=== PATIENT | female | born 1995 | race Caucasian/White ===

== ENCOUNTER 2016-10-08 12:36 | Inpatient (IN) | payer OTHER ==
[~2016-10-08] VITALS: Ht 167.6 cm; Wt 85.1 kg
[2016-10-08 12:44] VITALS: Ht 167.6 cm; Wt 85.1 kg
[2016-10-08] MEDS ORDERED: TERBUTALINE 1 MG/ML INJ SC ONE (13:00)
[2016-10-08] MEDS ORDERED: LACTATED RINGER'S 1,000 ML IV ONE (13:00)
[2016-10-08 13:58] LABS: ADD UMIC YES; UR BILIRUBIN (Dip) NEGATIVE (NEGATIVE); UR BLOOD (Dip) 1+ (NEGATIVE); UR CLARITY CLEAR (CLEAR); UR COLOR LT. YELLOW (YELLOW); UR GLUCOSE (Dip) NEGATIVE (NEGATIVE); UR KETONES (Dip) 15 (NEGATIVE); UR LEUKOCYTE ESTERASE (Dip) NEGATIVE (NEGATIVE); UR NITRITE (Dip) NEGATIVE (NEGATIVE); UR TOTAL PROTEIN (Dip) NEGATIVE (NEGATIVE); UR UROBILINOGEN (Dip) 0.2 E.U./dL (0.1-1.0)
[2016-10-08 14:13] LABS: URINE RBCS 0-2 /HPF (0)
[2016-10-08 14:14] LABS: UR BACTERIA OCCASIONAL; UR SQUAMOUS EPITHELIAL CELL FEW
--- NOTE | 2016-10-08 14:24 | TRIAGE ---
OB Triage Datetime Report Generated by CPN: 10/08/2016 14:23 Datetime: 10/08/2016 14:16 Pain Assessment Pain Presence: None/Denies Datetime: 10/08/2016 13:30 Labor Evaluation Monitor Mode: External Resting Tone [place]: Relaxed Pain Assessment Pain Presence: None/Denies Datetime: 10/08/2016 12:50 Heart Rate FHR Baseline Rate: 145 Monitor Mode: Doppler Datetime: 10/08/2016 12:42 Time of Arrival: 10/08/2016 12:34 EGA: 22.2 Arrived By: Wheelchair Arrived From: Other Unit in Hospital Chief Complaint: Short cervix 8mm from Perinatology Contractions: Denies/Absent Rupture of Membranes: Denies Vaginal Bleeding: None Vaginal Discharge: Denies Recent Sexual Intercouse: Denies Abdominal Trauma: Not Applicable Patient Complaints: None Time Provider Notified: 10/08/2016 12:54 Provider Notified: Stanley Initial Plan: Doppler, IV start with IV hydration, Terbutaline 0.25mg subq x1 Datetime: 10/08/2016 12:40 Assessment Type: Triage Maternal Assessment Level of Consciousness: Fully Conscious DTR's/Clonus: DTRs 2+; No Clonus Headache: Denies Blurred Vision: No Respiratory Effort: Unlabored; Regular Rhythm; Equal Expansion Breath Sounds, Left: Clear and Equal Breath Sounds, Right: Clear and Equal Nausea/Vomiting: Denies RUQ Epigastric Pain: Denies Lower Extremities Edema: None Degree: None Upper Extremities Edema: None Degree: None Facial Edema: None Fall Risk Assessment History of Falling: (0) No Secondary Diagnosis: (0) No Ambulatory Aid: (0) Bedrest/Nurse Assist IV Therapy: (0) No Gait: (0) Normal/Bedrest/Immobile Mental Status: (0) Oriented to Own Ability Fall Score: 0 Fall Risk Score Definition: No Risk: No action required
[2016-10-08] MEDS ORDERED: INDOMETHACIN 50 MG PO SCH (14:30)
[2016-10-08] MEDS: INDOMETHACIN 50 MG PO SCH ×2 (14:37→19:34)
[2016-10-08] MEDS: LACTATED RINGER'S 1,000 ML IV SCH ×2 (19:35→22:13)
--- NOTE | 2016-10-08 21:17 | HP ---
Date/Time of Note Date/Time of Note DATE: 10/08/16 TIME: 21:12 OB - History Hx of Present Free Text/Dictation Sent in by perinatologist for observation at 21 weeks because of cervical length of 7mm Last Menstrual Period: Apr 13, 2016 Estimated Due Date: Feb 17, 2017 : 1 Para: 0 Care: Limited Care Ultrasounds: Abnormal US findings (short cervix ) Obstetrical Complications: Other (short cervix) Medical Complications: None Past Family/Social History * Past Medical, Surgical, Family and Obstetric Histories reviewed from chart. OB Admission Exam Physical Exam HEENT: WNL Heart: Rhythm Normal Lungs: Clear, Equal Abdomen: WNL Extremities: Normal Reflexes: Normal Cervical Dilatation: None Effacement: 75% Station: -3 Membranes: Intact Heart Rate: 140's Contractions on Admission: None OB Assessment/Plan Other Assessment: Short cervix at 21 weeks gestation Other plan: Per perinatology recommendation will keep patient in Trendelenburg position and start patient on Nifedipine and if needed terbutaline Reassess in 4 days for possible cervical cerclage TRACIE BISHOP MD October 08, 2016 21:17
[2016-10-09] MEDS: INDOMETHACIN 50 MG PO SCH ×4 (00:03→17:28)
[2016-10-09] MEDS: LACTATED RINGER'S 1,000 ML IV SCH ×3 (03:35→19:17)
[2016-10-09] MEDS: PRENATAL VITAMIN PO SCH (09:15)
[2016-10-09] MEDS: FERROUS SULFATE (EC) 325 MG TAB PO SCH (09:15)
[2016-10-09] MEDS: SENNA TAB PO SCH ×2 (09:16→21:18)
--- NOTE | 2016-10-09 18:18 | PN ---
Date/Time of Note Date/Time of Note DATE: 10/09/16 TIME: 18:17 OB Subjective Subjective Subjective NO C/O U/C OB Objective Objective Objective VSS P/E: :unchanged OB Assessment/Plan Other Assessment: short cervix IUP at 21 weeks Other plan: will continue Indocin x 3 more days and evaluate cervical length TRACIE BISHOP MD October 09, 2016 18:18
[2016-10-09] MEDS: PROGESTERONE 100 MG CAP VAG SCH (21:19)
[2016-10-10] MEDS: INDOMETHACIN 50 MG PO SCH ×5 (00:16→23:52)
[2016-10-10] MEDS: LACTATED RINGER'S 1,000 ML IV SCH ×3 (02:53→17:59)
[2016-10-10] MEDS: ACETAMINOPHEN 325 MG TAB PO PRN ×2 (07:05→12:42)
[2016-10-10] MEDS: FERROUS SULFATE (EC) 325 MG TAB PO SCH (09:11)
[2016-10-10] MEDS: PRENATAL VITAMIN PO SCH (09:11)
[2016-10-10] MEDS: SENNA TAB PO SCH ×2 (09:11→20:53)
[2016-10-10] MEDS ORDERED: ONDANSETRON 4 MG INJ IV STA (15:55)
[2016-10-10] MEDS ORDERED: ONDANSETRON 4 MG INJ ONE (16:02)
[2016-10-10] MEDS: MAGNESIUM HYDROXIDE 30ML CUP PO PRN (16:03)
--- NOTE | 2016-10-10 18:40 | PN ---
Date/Time of Note Date/Time of Note DATE: 10/10/16 TIME: 18:38 OB Subjective Subjective Subjective C/O N/V OB Objective Objective Objective VSS P/E unchanged HEENT: WNL Heart: Rhythm Normal Lungs: Clear, Equal Abdomen: WNL Extremities: Normal Reflexes: Normal OB Assessment/Plan Other Assessment: short cervix possible incompetent cervix Other plan: reevaluate cervical length next day TRACIE BISHOP MD October 10, 2016 18:40
[2016-10-10] MEDS: PROGESTERONE 100 MG CAP VAG SCH (20:58)
[2016-10-11] MEDS: LACTATED RINGER'S 1,000 ML IV SCH ×3 (02:19→17:42)
[2016-10-11] MEDS: INDOMETHACIN 50 MG PO SCH ×3 (06:03→17:42)
[2016-10-11] MEDS: SENNA TAB PO SCH ×2 (09:00→21:00)
[2016-10-11] MEDS: PRENATAL VITAMIN PO SCH (09:13)
[2016-10-11] MEDS: FERROUS SULFATE (EC) 325 MG TAB PO SCH (09:13)
[2016-10-11] MEDS: MAGNESIUM HYDROXIDE 30ML CUP PO PRN (12:50)
--- NOTE | 2016-10-11 16:37 | PN ---
Date/Time of Note Date/Time of Note DATE: 10/11/16 TIME: 16:34 OB Subjective Subjective Subjective NO C/O U/C OB Objective Objective Objective VSS P/E: NL on EFM no UC seen OB Assessment/Plan Other Assessment: short cervix Other plan: will repeat cervical length next day TRACIE BISHOP MD October 11, 2016 16:37
[2016-10-11] MEDS: PROGESTERONE 100 MG CAP VAG SCH (21:59)
[2016-10-12] MEDS: INDOMETHACIN 50 MG PO SCH ×4 (00:09→18:34)
[2016-10-12] MEDS: LACTATED RINGER'S 1,000 ML IV SCH (00:59)
[2016-10-12] MEDS: SENNA TAB PO SCH ×2 (09:00→21:00)
[2016-10-12] MEDS: PRENATAL VITAMIN PO SCH (09:17)
[2016-10-12] MEDS: FERROUS SULFATE (EC) 325 MG TAB PO SCH (09:17)
--- NOTE | 2016-10-12 10:00 | RADRPT ---
PROCEDURE: Obstetrical ultrasound CLINICAL INDICATION: Cervical shortening. TECHNIQUE: Puckett-scale sonographic images of the uterus and cervix. Transabdominal and transvaginal scanning was performed. COMPARISON: OB ultrasound 10/08/2016 FINDINGS: Funneling of the internal cervical os with cervical length of 1.0 cm is unchanged; as visualized tra nsvaginally. Placenta is posterior without evidence of previa. Breech presentation. IMPRESSION: Funneling of the internal cervical os with cervical length of 1.0 cm is unchanged. Breech presentation. RPTAT: AADD .Bradley Babb MD, MD Date Time Electronically viewed and signed by .Bradley Babb MD, on 10/12/2016 09:59 .B/
[2016-10-12] MEDS ORDERED: INDOMETHACIN 50 MG PO ONE (18:00)
--- NOTE | 2016-10-12 18:07 | PN ---
Date/Time of Note Date/Time of Note DATE: 10/12/16 TIME: 18:04 OB Subjective Subjective Subjective no major complaint OB Objective Objective Objective VSS P/E unchanged cervical length Unchanged with "funneling" OB Assessment/Plan Other Assessment: short cervix incompetent cervix Other plan: because of funneling patient needs to have hospitalization will discuss plan of care with perinatologist TRACIE BISHOP MD October 12, 2016 18:07
[2016-10-12] MEDS: PROGESTERONE 100 MG CAP VAG SCH (21:00)
[2016-10-13] MEDS: INDOMETHACIN 50 MG PO SCH ×2 (00:02→06:25)
[2016-10-13] MEDS: SENNA TAB PO SCH ×2 (09:00→21:32)
[2016-10-13] MEDS: PRENATAL VITAMIN PO SCH (09:05)
[2016-10-13] MEDS: FERROUS SULFATE (EC) 325 MG TAB PO SCH (09:05)
[2016-10-13] MEDS ORDERED: MAGNESIUM SULFATE 4 GM/100 ML 100 ML IV ONE (12:00)
[2016-10-13] MEDS: BETAMET NA PHOS/AC(6 MG/ML) 5ML INJ IM SCH (12:33)
[2016-10-13] MEDS: LACTATED RINGER'S 1,000 ML IV SCH (12:33)
[2016-10-13] MEDS: MAGNESIUM SULFATE 20 GM/500 ML 500 ML IV SCH ×2 (12:41→22:50)
--- NOTE | 2016-10-13 17:26 | PN ---
Date/Time of Note Date/Time of Note DATE: 10/13/16 TIME: 17:24 OB Subjective Subjective Subjective No major complaints OB Objective Objective Objective vss P/E : NL on EFM NO U/C seen per perinatologist patient was started on Magnesium Sulfate Indocin D/Iam sterois orderred per perinatologist OB Assessment/Plan Other Assessment: short cervix incompetent cervix Other plan: started patient on Magnesium sulfate per perinatologist TRACIE BISHOP MD October 13, 2016 17:26
[2016-10-13] MEDS: ACETAMINOPHEN 325 MG TAB PO PRN (19:44)
[2016-10-13] MEDS: PROGESTERONE 100 MG CAP VAG SCH (21:32)
[2016-10-14] MEDS: LACTATED RINGER'S 1,000 ML IV SCH ×2 (00:18→14:13)
[2016-10-14] MEDS: ONDANSETRON 4 MG INJ IV PRN ×2 (05:17→16:01)
[2016-10-14] MEDS: ACETAMINOPHEN 325 MG TAB PO PRN (07:27)
[2016-10-14] MEDS: MAGNESIUM HYDROXIDE 30ML CUP PO PRN (07:42)
[2016-10-14] MEDS: MAGNESIUM SULFATE 20 GM/500 ML 500 ML IV SCH ×2 (08:36→18:36)
[2016-10-14] MEDS: PRENATAL VITAMIN PO SCH (09:18)
[2016-10-14] MEDS: SENNA TAB PO SCH ×2 (09:18→21:00)
[2016-10-14] MEDS: FERROUS SULFATE (EC) 325 MG TAB PO SCH (09:18)
[2016-10-14] MEDS: BETAMET NA PHOS/AC(6 MG/ML) 5ML INJ IM SCH (12:00)
--- NOTE | 2016-10-14 18:14 | PN ---
Date/Time of Note Date/Time of Note DATE: 10/14/16 TIME: 18:13 OB Subjective Subjective Subjective No major complaint on magnesium sulfate OB Objective Objective Objective VSS general P/E is unchanged OB Assessment/Plan Other Assessment: shot cervix and incompetent cervix Other plan: start PO tocolytic next AM TRACIE BISHOP MD October 14, 2016 18:14
[2016-10-14] MEDS: PROGESTERONE 100 MG CAP VAG SCH (21:00)
[2016-10-15] MEDS: LACTATED RINGER'S 1,000 ML IV SCH ×2 (03:11→16:48)
[2016-10-15] MEDS: MAGNESIUM SULFATE 20 GM/500 ML 500 ML IV SCH ×2 (04:56→14:46)
[2016-10-15] MEDS: SENNA TAB PO SCH ×2 (09:00→21:56)
[2016-10-15] MEDS: FERROUS SULFATE (EC) 325 MG TAB PO SCH (09:00)
[2016-10-15] MEDS: PRENATAL VITAMIN PO SCH (09:00)
[2016-10-15] MEDS: NIFEdipine 10 MG CAP PO SCH (17:30)
--- NOTE | 2016-10-15 19:55 | PN ---
Date/Time of Note Date/Time of Note DATE: 10/15/16 TIME: 19:53 OB Subjective Subjective Subjective No major complaints No C/O UCs OB Objective Objective Objective vss P/E: NL and unchanges S/P 2 X steroid injection OB Assessment/Plan Other Assessment: short cervix ? labor Other plan: continue to observe on PO Nifedipine TRACIE BISHOP MD October 15, 2016 19:55
[2016-10-15] MEDS: PROGESTERONE 100 MG CAP VAG SCH (21:56)
[2016-10-16] MEDS: NIFEdipine 10 MG CAP PO SCH ×2 (00:06→05:52)
[2016-10-16] MEDS: LACTATED RINGER'S 1,000 ML IV SCH ×2 (05:51→19:31)
[2016-10-16] MEDS: PRENATAL VITAMIN PO SCH (09:37)
[2016-10-16] MEDS: FERROUS SULFATE (EC) 325 MG TAB PO SCH (09:37)
[2016-10-16] MEDS: SENNA TAB PO SCH ×2 (09:37→21:18)
[2016-10-16] MEDS ORDERED: MAGNESIUM SULFATE 4 GM/100 ML 100 ML IVPB ONE (12:00)
[2016-10-16] MEDS: INDOMETHACIN 25 MG PO SCH ×2 (12:12→18:03)
[2016-10-16] MEDS: MAGNESIUM SULFATE 20 GM/500 ML 500 ML IV SCH ×2 (12:25→22:08)
--- NOTE | 2016-10-16 15:09 | PN ---
Date/Time of Note Date/Time of Note DATE: 10/16/16 TIME: 15:07 OB Subjective Subjective Subjective C/P uterine tightening OB Objective Objective Objective on EFM frequr=ent uterine contractions seen patient was restarted on magnesium sulfate OB Assessment/Plan Reason for admission: labor Other Assessment: short cervix Other plan: continue with magnesium sulfate TRACIE BISHOP MD October 16, 2016 15:09
[2016-10-16] MEDS: PROGESTERONE 100 MG CAP VAG SCH (21:18)
[2016-10-17] MEDS: INDOMETHACIN 25 MG PO SCH ×5 (00:06→23:58)
[2016-10-17] MEDS: LACTATED RINGER'S 1,000 ML IV SCH ×2 (08:38→21:34)
[2016-10-17] MEDS: MAGNESIUM SULFATE 20 GM/500 ML 500 ML IV SCH ×2 (08:42→18:56)
[2016-10-17] MEDS: SENNA TAB PO SCH ×2 (09:35→21:18)
[2016-10-17] MEDS: FERROUS SULFATE (EC) 325 MG TAB PO SCH (09:36)
[2016-10-17] MEDS: PRENATAL VITAMIN PO SCH (09:36)
--- NOTE | 2016-10-17 17:14 | QN ---
Documentation Comment Progress note: 21 y.o. G1 with an IUP at 23w 4d with labor and a very short cervix. 10/08 EFW was 548 grams and the cervix was 0.8 cm with funneling. On 10/12 the cervix was 1 cm. She was given steroids 10/13 and 10/14. She is on progesterone suppositories.She had been on magnesium, then was on Indocin until 10/13. She was then changed to Procardia but she started angélica with that so last night the Magnesium was restarted as well as the Indocin? Pt feels well and is w /o bleeding or leaking. P: Continue magnesium for now. Will request another perinatology consult to develop a plan. BOBBI SUE MD October 17, 2016 17:14
[2016-10-17] MEDS: PROGESTERONE 100 MG CAP VAG SCH (21:18)
[2016-10-18] MEDS: MAGNESIUM SULFATE 20 GM/500 ML 500 ML IV SCH ×2 (04:40→14:28)
[2016-10-18] MEDS: INDOMETHACIN 25 MG PO SCH ×4 (06:04→23:58)
[2016-10-18] MEDS: PRENATAL VITAMIN PO SCH (09:53)
[2016-10-18] MEDS: FERROUS SULFATE (EC) 325 MG TAB PO SCH (09:53)
[2016-10-18] MEDS: SENNA TAB PO SCH ×2 (09:53→21:45)
[2016-10-18] MEDS: LACTATED RINGER'S 1,000 ML IV SCH (10:53)
[2016-10-18] MEDS: PROGESTERONE 100 MG CAP VAG SCH (21:45)
[2016-10-19] MEDS: MAGNESIUM SULFATE 20 GM/500 ML 500 ML IV SCH ×3 (00:01→20:30)
[2016-10-19] MEDS: LACTATED RINGER'S 1,000 ML IV SCH ×2 (00:02→13:36)
--- NOTE | 2016-10-19 00:17 | QN ---
Documentation Comment Progress note 21 y.o. G1 with an IUP at 23w 5 d on 10/18 with PTL and a short cervix of 1 cm. Pt had been on magnesium and Indocin and then went off and then was restarted on 10/16. Dr Rushing saw this pt today and formulated a plan. The plan is to continue the Indocin x 96 hours or 4 days which will be 10/20 at noon. The magnesium will be continued until then . If need be it will need to be d/shivani and then restarted after 6 hours. Pt is doing fine and is stable at this point in time. Her spirits are reasonably good. BOBBI SUE MD October 19, 2016 00:17
[2016-10-19] MEDS: INDOMETHACIN 25 MG PO SCH ×4 (05:52→23:54)
[2016-10-19] MEDS: SENNA TAB PO SCH ×2 (09:00→20:31)
[2016-10-19] MEDS: FERROUS SULFATE (EC) 325 MG TAB PO SCH (09:02)
[2016-10-19] MEDS: PRENATAL VITAMIN PO SCH (09:02)
--- NOTE | 2016-10-19 15:28 | QN ---
Documentation Comment pt doing well no complaints vss exam wnl fht POS a/p iup 23.6 short cervix stable continue current course SOLOMON BURCH MD October 19, 2016 15:28
[2016-10-19] MEDS: PROGESTERONE 100 MG CAP VAG SCH (20:31)
[2016-10-20] MEDS: LACTATED RINGER'S 1,000 ML IV SCH ×4 (03:18→23:15)
[2016-10-20] MEDS: MAGNESIUM SULFATE 20 GM/500 ML 500 ML IV SCH (06:26)
[2016-10-20] MEDS: INDOMETHACIN 25 MG PO SCH (06:28)
[2016-10-20] MEDS: FERROUS SULFATE (EC) 325 MG TAB PO SCH (09:06)
[2016-10-20] MEDS: PRENATAL VITAMIN PO SCH (09:06)
[2016-10-20] MEDS: SENNA TAB PO SCH ×2 (09:07→21:02)
--- NOTE | 2016-10-20 17:37 | PN ---
Date/Time of Note Date/Time of Note DATE: 10/20/16 TIME: 17:33 OB Subjective Subjective Subjective Patient is a 21-year-old 1 para 0 at 24 weeks of gestation with shortened cervix Status post magnesium sulfate Status post indomethacin Status post betamethasone for lung maturity 2 doses OB Objective Objective Objective Patient does not complain of any contractions, no leaking fluid, no vaginal bleeding, positive movement ROCEDURE: Obstetrical ultrasound CLINICAL INDICATION: Cervical shortening. TECHNIQUE: Puckett-scale sonographic images of the uterus and cervix. Transabdominal and transvaginal scanning was performed. COMPARISON: OB ultrasound 10/08/2016 FINDINGS: Funneling of the internal cervical os with cervical length of 1.0 cm is unchanged; as visualized transvaginally. Placenta is posterior without evidence of previa. Breech presentation. IMPRESSION: Funneling of the internal cervical os with cervical length of 1.0 cm is unchanged. Breech presentation. RPTAT: AADD .Bradley Babb MD, MD Date Time Electronically viewed and signed by .Bradley Babb MD, MD on 10/12/2016 09:59 .B/ CC: TRACIE BISHOP HEENT: WNL Heart: Rhythm Normal Lungs: Clear, Equal Abdomen: WNL Extremities: Normal Reflexes: Normal Heart Rate: 140's Accelerations: Accelerations Present Decelerations: No Decelerations Contractions on Admission: None OB Assessment/Plan Reason for admission: labor Other plan: Continue with expectant management Consider repeat ultrasound Perinatology to see the patient tomorrow TAVIA RIVAS MD October 20, 2016 17:37
[2016-10-20] MEDS: PROGESTERONE 100 MG CAP VAG SCH (21:02)
[2016-10-21] MEDS: LACTATED RINGER'S 1,000 ML IV SCH ×3 (08:20→22:39)
[2016-10-21] MEDS: FERROUS SULFATE (EC) 325 MG TAB PO SCH (09:50)
[2016-10-21] MEDS: PRENATAL VITAMIN PO SCH (09:50)
[2016-10-21] MEDS: SENNA TAB PO SCH ×2 (09:50→21:15)
--- NOTE | 2016-10-21 17:47 | QN ---
Documentation Comment Progress note: 21 y.o. with an IUP at 24w 1d with ah.o PTL and a very short cervix. S/p steroids and s/p Magnesium and Indocin x 2 rounds. Off all since yesterday and doing fine with no contractions or pain. Baby w/o evidence of distress when monitored. No VB or leaking. Pt on IVF's only. Pt had PT today. Pt in moderately good spirits. P: Continue care. May restart magnesium for a 4 day run whenever it is necessary. BOBBI SUE MD October 21, 2016 17:47
--- NOTE | 2016-10-21 18:28 | CONS ---
Date/Time of Note Date/Time of Note DATE: 10/21/16 TIME: 18:01 Consultation Date/Type/Reason Admit Date/Time October 21, 2016 OB triage consult Reason for Consultation This patient is a 21 years old 1 para 0 with estimated date of confinement February 09, 2017 which makes her 34 weeks and 1 day today . . She is admitted in the high-risk service of the hospital on October 08, 2016 She received both doses of betamethasone As well as a mag sulfate. Current Medications Medications (Trade) Dose Ordered Sig/Felipe Route PRN Reason Start Time Stop Time Status Last Admin Dose Admin Lactated Ringer's (Lr) 1,000 ml @ 1,000 mls/hr Q1H ONCE IV 10/08/16 13:00 10/08/16 13:59 DC 10/08/16 13:41 1,000 MLS/HR Terbutaline Sulfate 0.25 mg 0.25 mg ONCE ONCE SC 10/08/16 13:00 10/08/16 13:02 DC 10/08/16 13:40 0.25 MG Lactated Ringer's (Lr) 1,000 ml @ 125 mls/hr Q8H IV 10/08/16 14:13 10/12/16 11:44 DC 10/12/16 00:59 125 MLS/HR Indomethacin (Indocin) 50 mg Q6 ONCE PO 10/12/16 18:00 10/12/16 18:00 DC Prenat Multivit/ Mechanist/Iron/Folic Ac ( S) 1 tab DAILY PO 10/09/16 09:00 10/21/16 09:50 1 TAB Ferrous Sulfate (Ferrous Sulfate (Ec)) 325 mg DAILY PO 10/09/16 09:00 10/21/16 09:50 325 MG Acetaminophen (Tylenol Tab) 650 mg Q4H PRN PO PAIN AND OR ELEVATED TEMP 10/08/16 14:30 10/14/16 07:27 650 MG Indomethacin (Indocin) 50 mg QID PO 10/08/16 14:30 10/08/16 14:30 DC Indomethacin (Indocin) 50 mg Q6 PO 10/08/16 14:30 10/12/16 14:29 DC 10/12/16 11:49 50 MG Magnesium Hydroxide (Milk Of Mag) 30 ml BID PRN PO CONSTIPATION 10/08/16 21:30 10/14/16 07:42 30 ML Senna (Senokot) 2 tab BID PO 10/09/16 09:00 10/21/16 09:50 2 TAB Progesterone (Prometrium) 200 mg HS VAG 10/09/16 21:00 10/20/16 21:02 200 MG Ondansetron HCl (Zofran Inj) 4 mg ONCE STAT IV 10/10/16 15:55 10/10/16 16:01 DC 10/10/16 16:03 4 MG Ondansetron HCl (Zofran Inj) 4 mg STK-MED ONCE .ROUTE 10/10/16 16:02 10/10/16 16:03 DC Indomethacin 50 mg 50 mg Q6 PO 10/12/16 18:30 10/13/16 11:57 DC 10/13/16 06:25 50 MG Lactated Ringer's 1,000 ml @ 75 mls/hr [id number] IV 10/13/16 12:00 10/20/16 23:31 DC 10/20/16 23:14 75 MLS/HR Magnesium Sulfate 100 ml @ 200 mls/hr ONCE ONCE IV 10/13/16 12:00 10/13/16 12:29 DC 10/13/16 12:40 200 MLS/HR Magnesium Sulfate (Magnesium Sulfate 20 Gm/500 ml) 500 ml @ 50 mls/hr Q10H IV 10/13/16 12:00 10/14/16 16:23 DC 10/14/16 08:36 50 MLS/HR Betamethasone Acet/Betameth SodPhos (Celestone Soluspan) 12 mg Q24H IM 10/13/16 12:00 10/14/16 12:01 DC 10/14/16 12:00 12 MG Ondansetron HCl 4 mg 4 mg Q6H PRN IV NAUSEA AND/OR VOMITING 10/13/16 13:00 10/14/16 16:01 4 MG Magnesium Sulfate (Magnesium Sulfate 20 Gm/500 ml) 500 ml @ 50 mls/hr Q10H IV 10/14/16 16:22 10/15/16 15:59 DC 10/15/16 14:46 50 MLS/HR Nifedipine 20 mg 20 mg Q6 PO 10/15/16 18:00 10/16/16 12:20 DC 10/16/16 05:52 20 MG Magnesium Sulfate 100 ml @ 200 mls/hr ONCE ONCE IVPB 10/16/16 12:00 10/16/16 12:29 DC 10/16/16 11:56 200 MLS/HR Magnesium Sulfate (Magnesium Sulfate 20 Gm/500 ml) 500 ml @ 50 mls/hr Q10H IV 10/16/16 12:00 10/20/16 16:56 DC 10/20/16 06:26 50 MLS/HR Indomethacin 25 mg 25 mg Q6 PO 10/16/16 12:00 10/20/16 16:56 DC 10/20/16 06:28 25 MG Lactated Ringer's (Lr) 1,000 ml @ 125 mls/hr Q8H IV 10/20/16 23:10 10/21/16 14:52 125 MLS/HR Reason for Consultation This patient is a 21 years old 1 para 0 with estimated date of confinement of February 09, 2017 which makes her 34 weeks and 1 day today . . She is admitted in the high-risk service of the hospital since October 08, 2016 She received both doses of betamethasone As well as a max sulfate Currently she is a stable heart tone is normal good variability no deceleration Abdomen is soft no palpable contractions no vaginal bleeding Constitutional: No chills, No diaphoresis, No disoriented, No febrile, No improved, No no complaints, No other, No poor po, No requiring IVF, No requiring O2 Eyes: No discharge, No no complaints, No other, No pain, No redness, No visual change ENT: No bleeding, No congestion, No discharge, No dysphagia, No no complaints, No other, No pain, No sore throat Respiratory: No cough, No no complaints, No other, No pain, No pleuritic pain, No shortness of breath, No sputum, No wheezing Cardiovascular: No chest pain, No edema, No lightheadedness, No no complaints, No orthopenea, No other, No palpitations, No paroxysmal nocturnal dyspnea Gastrointestinal: other (Abdomen is soft fundus is soft no contraction at this time heart tone is normal), No blood, No constipation, No decreased appetite, No diarrhea, No flatus, No nausea, No no complaints, No pain, No passing stool, No vomiting Genitourinary: No bleeding, No discharge, No dysuria, No flank pain, No hematuria, No no complaints, No other Musculoskeletal: No back pain, No bone/joint pain, No neck pain, No no complaints, No other, No restricted range of motion, No swelling Skin: No bruising, No erythema, No laceration, No no complaints, No other, No pruritis, No rash, No skin lesions Neurologic: No confusion, No dizziness, No focal-weakness, No headache, No no complaints, No other, No seizure, No syncope Endocrine: No dry skin, No no complaints, No other, No polydypsia, No polyuria , No temp intolerance Additional Comments She will stay in high risk service of the hospital till about 35 or 36 weeks of gestation Social History Smoking Status: Never smoker Exam/Review of Systems Vital Signs Vitals Intake and Output 10/20/16 10/20/16 10/21/16 15:00 23:00 07:00 Intake Total 250 ml 250 ml 1000 ml Output Total 1250 ml 800 ml 550 ml Balance -1000 ml -550 ml 450 ml Medications Medications Current Medications Prenat Multivit/ Mechanist/Iron/Folic Ac ( S) 1 tab DAILY PO Last administered on 10/21/16 09:50; Admin Dose 1 TAB; Start 10/09/16 at 09:00 Ferrous Sulfate (Ferrous Sulfate (Ec)) 325 mg DAILY PO Last administered on 09:50; Admin Dose 325 MG; Start 10/09/16 at 09:00 Acetaminophen (Tylenol Tab) 650 mg Q4H PRN PO PAIN AND OR ELEVATED TEMP Last administered on 10/14/16 07:27; Admin Dose 650 MG; Start 10/08/16 at 14:30 Magnesium Hydroxide (Milk Of Mag) 30 ml BID PRN PO CONSTIPATION Last administered on 10/14/16 07:42; Admin Dose 30 ML; Start 10/08/16 at 21:30 Senna (Senokot) 2 tab BID PO Last administered on 10/21/16 09:50; Admin Dose 2 TAB; Start 10/09/16 at 09:00 Progesterone (Prometrium) 200 mg HS VAG Last administered on 10/20/16 21:02; Admin Dose 200 MG; Start 10/09/16 at 21:00 Ondansetron HCl 4 mg 4 mg Q6H PRN IV NAUSEA AND/OR VOMITING Last administered on 10/14/16 16:01; Admin Dose 4 MG; Start 10/13/16 at 13:00 Lactated Ringer's (Lr) 1,000 ml @ 125 mls/hr Q8H IV Last administered on 14:52; Admin Dose 125 MLS/HR; Start 10/20/16 at 23:10 ISAAC SCOTT MD October 21, 2016 18:11
[2016-10-21] MEDS: PROGESTERONE 100 MG CAP VAG SCH (21:15)
[2016-10-22] MEDS: LACTATED RINGER'S 1,000 ML IV SCH ×3 (06:09→23:00)
[2016-10-22] MEDS: PRENATAL VITAMIN PO SCH (10:18)
[2016-10-22] MEDS: SENNA TAB PO SCH ×2 (10:18→21:27)
[2016-10-22] MEDS: FERROUS SULFATE (EC) 325 MG TAB PO SCH (10:18)
--- NOTE | 2016-10-22 20:38 | PN ---
Date/Time of Note Date/Time of Note DATE: 10/22/16 TIME: 20:36 OB Subjective Subjective Subjective NO C/O U/C OB Objective Objective Objective VSS P/E: NL on EFM no UC seen OB Assessment/Plan Other Assessment: labor short cervix Other plan: continue to observe TRACIE BISHOP MD October 22, 2016 20:38
[2016-10-22] MEDS: PROGESTERONE 100 MG CAP VAG SCH (21:27)
[2016-10-23] MEDS: NIFEdipine 10 MG CAP PO SCH ×5 (00:11→23:51)
[2016-10-23] MEDS: LACTATED RINGER'S 1,000 ML IV SCH ×3 (06:40→22:33)
[2016-10-23] MEDS: SENNA TAB PO SCH ×2 (09:07→22:04)
[2016-10-23] MEDS: PRENATAL VITAMIN PO SCH (09:07)
[2016-10-23] MEDS: FERROUS SULFATE (EC) 325 MG TAB PO SCH (09:07)
--- NOTE | 2016-10-23 13:44 | PN ---
Date/Time of Note Date/Time of Note DATE: 10/23/16 TIME: 13:42 OB Subjective Subjective Subjective No C/O UCs OB Objective Objective Objective VSS P/E:NL on EFM no U/C seen OB Assessment/Plan Reason for admission: labor Other Assessment: short dervic Other plan: continue to observe TRACIE BISHOP MD Oct 23, 2016 13:44
[2016-10-23] MEDS: PROGESTERONE 100 MG CAP VAG SCH (22:04)
[2016-10-24] MEDS: LACTATED RINGER'S 1,000 ML IV SCH ×3 (05:44→22:23)
[2016-10-24] MEDS: NIFEdipine 10 MG CAP PO SCH ×3 (05:46→18:08)
[2016-10-24] MEDS: FERROUS SULFATE (EC) 325 MG TAB PO SCH (08:52)
[2016-10-24] MEDS: PRENATAL VITAMIN PO SCH (08:52)
[2016-10-24] MEDS: SENNA TAB PO SCH ×2 (08:53→21:21)
--- NOTE | 2016-10-24 15:15 | PN ---
Date/Time of Note Date/Time of Note DATE: 10/24/16 TIME: 15:14 OB Subjective Subjective Subjective No major complaints OB Objective Objective Objective vss P/E: NL on EFM no UC seen OB Assessment/Plan Reason for admission: labor Other Assessment: short cervix Other plan: continue to observe TRACIE BISHOP MD Oct 24, 2016 15:15
[2016-10-24] MEDS: PROGESTERONE 100 MG CAP VAG SCH (21:22)
[2016-10-25] MEDS: NIFEdipine 10 MG CAP PO SCH ×5 (00:25→23:50)
[2016-10-25] MEDS: LACTATED RINGER'S 1,000 ML IV SCH ×3 (06:05→21:42)
[2016-10-25] MEDS: FERROUS SULFATE (EC) 325 MG TAB PO SCH (09:16)
[2016-10-25] MEDS: SENNA TAB PO SCH ×2 (09:16→20:59)
[2016-10-25] MEDS: PRENATAL VITAMIN PO SCH (09:16)
--- NOTE | 2016-10-25 13:52 | PN ---
Date/Time of Note Date/Time of Note DATE: 10/25/16 TIME: 13:51 OB Subjective Subjective Subjective no C/O UCs OB Objective Objective Objective VSS general PE: unchanged o EFM no UCs seen OB Assessment/Plan Reason for admission: labor Other Assessment: short cervix Other plan: will continue on current course TRACIE BISHOP MD Oct 25, 2016 13:52
[2016-10-25] MEDS: PROGESTERONE 100 MG CAP VAG SCH (20:59)
[2016-10-26] MEDS: LACTATED RINGER'S 1,000 ML IV SCH (05:46)
[2016-10-26] MEDS: NIFEdipine 10 MG CAP PO SCH ×4 (05:49→23:58)
[2016-10-26] MEDS: PRENATAL VITAMIN PO SCH (09:07)
[2016-10-26] MEDS: SENNA TAB PO SCH ×2 (09:08→21:05)
[2016-10-26] MEDS: FERROUS SULFATE (EC) 325 MG TAB PO SCH (09:08)
--- NOTE | 2016-10-26 17:22 | PN ---
Date/Time of Note Date/Time of Note DATE: 10/26/16 TIME: 17:20 OB Subjective Subjective Subjective no C/O UCs OB Objective Objective Objective vss P/E: NL on EFM no UCs seen OB Assessment/Plan Reason for admission: labor Other Assessment: short cervix Other plan: continue to observe on bed + pelvic rest TRACIE BISHOP MD Oct 26, 2016 17:22
[2016-10-26] MEDS: PROGESTERONE 100 MG CAP VAG SCH (21:05)
[2016-10-27] MEDS: NIFEdipine 10 MG CAP PO SCH ×4 (06:12→23:56)
[2016-10-27] MEDS: FERROUS SULFATE (EC) 325 MG TAB PO SCH (09:12)
[2016-10-27] MEDS: PRENATAL VITAMIN PO SCH (09:12)
[2016-10-27] MEDS: SENNA TAB PO SCH ×2 (09:12→21:09)
--- NOTE | 2016-10-27 18:38 | PN ---
Date/Time of Note Date/Time of Note DATE: 10/27/16 TIME: 18:36 OB Subjective Subjective Subjective No major complaints No C/S UCs OB Objective Objective Objective vss P/E: unchanged on EFM no UC seen OB Assessment/Plan Other Assessment: labor and short cervix Other plan: per perinatologist will keep patient in house TRACIE BISHOP MD Oct 27, 2016 18:38
[2016-10-27] MEDS: PROGESTERONE 100 MG CAP VAG SCH (21:09)
[2016-10-28] MEDS: NIFEdipine 10 MG CAP PO SCH ×4 (05:53→23:59)
[2016-10-28] MEDS: PRENATAL VITAMIN PO SCH (09:31)
[2016-10-28] MEDS: SENNA TAB PO SCH ×2 (09:31→21:03)
[2016-10-28] MEDS: FERROUS SULFATE (EC) 325 MG TAB PO SCH (09:31)
--- NOTE | 2016-10-28 17:01 | PN ---
Date/Time of Note Date/Time of Note DATE: 10/28/16 TIME: 16:59 OB Subjective Subjective Subjective No C/O UC OB Objective Objective Objective VSS general P/E in unchanged OB Assessment/Plan Reason for admission: labor Other Assessment: short cervix Other plan: continue on current course TRACIE BISHOP MD Oct 28, 2016 17:01
[2016-10-28] MEDS: PROGESTERONE 100 MG CAP VAG SCH (21:03)
[2016-10-29] MEDS: NIFEdipine 10 MG CAP PO SCH ×3 (06:04→17:55)
[2016-10-29] MEDS: SENNA TAB PO SCH ×2 (09:34→21:05)
[2016-10-29] MEDS: FERROUS SULFATE (EC) 325 MG TAB PO SCH (09:34)
[2016-10-29] MEDS: PRENATAL VITAMIN PO SCH (09:34)
--- NOTE | 2016-10-29 20:21 | PN ---
Date/Time of Note Date/Time of Note DATE: 10/29/16 TIME: 20:18 OB Subjective Subjective Subjective no major complaint no C/O UC OB Objective Objective Objective VSS P/E: unchanged on EFM no UC seen OB Assessment/Plan Reason for admission: labor Other Assessment: short cervix Other plan: continue observe TRACIE BISHOP MD Oct 29, 2016 20:20
[2016-10-29] MEDS: PROGESTERONE 100 MG CAP VAG SCH (21:06)
[2016-10-30] MEDS: NIFEdipine 10 MG CAP PO SCH ×5 (00:08→23:55)
[2016-10-30] MEDS: FERROUS SULFATE (EC) 325 MG TAB PO SCH (08:54)
[2016-10-30] MEDS: SENNA TAB PO SCH ×2 (08:55→20:56)
[2016-10-30] MEDS: PRENATAL VITAMIN PO SCH (08:55)
--- NOTE | 2016-10-30 12:02 | PN ---
Date/Time of Note Date/Time of Note DATE: 10/30/16 TIME: 12:00 OB Subjective Subjective Subjective No C/O U/C OB Objective Objective Objective VSS P/E unchanged has no UCs on EFM OB Assessment/Plan Reason for admission: labor Other Assessment: short cervix Other plan: continue to observe TRACIE BISHOP MD Oct 30, 2016 12:02
[2016-10-30] MEDS: PROGESTERONE 100 MG CAP VAG SCH (20:56)
[2016-10-31] MEDS: NIFEdipine 10 MG CAP PO SCH ×4 (05:55→23:57)
[2016-10-31] MEDS: FERROUS SULFATE (EC) 325 MG TAB PO SCH (09:04)
[2016-10-31] MEDS: PRENATAL VITAMIN PO SCH (09:04)
[2016-10-31] MEDS: SENNA TAB PO SCH ×2 (09:04→21:17)
--- NOTE | 2016-10-31 13:33 | PN ---
Date/Time of Note Date/Time of Note DATE: 10/31/16 TIME: 13:27 OB Subjective Subjective Subjective no c/o cramping pain or pressure on lower abdomen having b.m daily no leaking OB Objective Objective Objective FHT 140 EFM no uc OB Assessment/Plan Other Assessment: IUP 25w4d short cervix 1cm stable beech presentation s/p x2 bmz s/p magnesium sulfate for 4days even indocin for 4days on progesterone 200mg supp hs and procardia [id number] Other plan: continue current care with bed rest ADRIANNA GROSSMAN MD Oct 31, 2016 13:33
[2016-10-31] MEDS: PROGESTERONE 100 MG CAP VAG SCH (21:17)
[2016-11-01] MEDS: NIFEdipine 10 MG CAP PO SCH ×3 (05:53→17:22)
[2016-11-01] MEDS: PRENATAL VITAMIN PO SCH (08:53)
[2016-11-01] MEDS: SENNA TAB PO SCH ×2 (08:53→21:02)
[2016-11-01] MEDS: FERROUS SULFATE (EC) 325 MG TAB PO SCH (08:53)
[2016-11-01] MEDS: PROGESTERONE 100 MG CAP VAG SCH (21:02)
--- NOTE | 2016-11-01 22:54 | PN ---
Date/Time of Note Date/Time of Note DATE: 11/01/16 TIME: 22:51 OB Subjective Subjective Subjective had bloating today but no pressure or uterine contractions OB Objective Objective Objective u.c 1/hr on efm OB Assessment/Plan Other Assessment: IUP 25w5d short cervix Other plan: continue with observation with current management ADRIANNA GROSSMAN MD Nov 01, 2016 22:54
[2016-11-02] MEDS: NIFEdipine 10 MG CAP PO SCH ×5 (00:05→23:48)
[2016-11-02] MEDS: PRENATAL VITAMIN PO SCH (08:36)
[2016-11-02] MEDS: SENNA TAB PO SCH ×2 (08:36→20:57)
[2016-11-02] MEDS: FERROUS SULFATE (EC) 325 MG TAB PO SCH (08:36)
--- NOTE | 2016-11-02 16:35 | PN ---
Date/Time of Note Date/Time of Note DATE: 11/02/16 TIME: 16:33 OB Subjective Subjective Subjective no co having b.m daily OB Objective Objective Objective EFM no significant uterine activities OB Assessment/Plan Other Assessment: IUP 25w6d short cervix stable Other plan: continue current management ADRIANNA GROSSMAN MD Nov 02, 2016 16:35
[2016-11-02] MEDS: PROGESTERONE 100 MG CAP VAG SCH (20:57)
[2016-11-03] MEDS: NIFEdipine 10 MG CAP PO SCH ×4 (05:47→23:51)
[2016-11-03] MEDS: PRENATAL VITAMIN PO SCH (08:37)
[2016-11-03] MEDS: SENNA TAB PO SCH ×2 (08:38→21:12)
[2016-11-03] MEDS: FERROUS SULFATE (EC) 325 MG TAB PO SCH (08:38)
--- NOTE | 2016-11-03 15:51 | PN ---
Date/Time of Note Date/Time of Note DATE: 11/03/16 TIME: 15:50 OB Subjective Subjective Subjective no C/O uterine contractions OB Objective Objective Objective vss P/E unchanged FHTs R OB Assessment/Plan Reason for admission: labor Other Assessment: short cervix Other plan: continue on present course TRACIE BISHOP MD Nov 03, 2016 15:51
[2016-11-03] MEDS: PROGESTERONE 100 MG CAP VAG SCH (21:12)
[2016-11-04] MEDS: NIFEdipine 10 MG CAP PO SCH ×4 (05:47→23:42)
[2016-11-04] MEDS: FERROUS SULFATE (EC) 325 MG TAB PO SCH (09:13)
[2016-11-04] MEDS: SENNA TAB PO SCH ×2 (09:13→21:07)
[2016-11-04] MEDS: PRENATAL VITAMIN PO SCH (09:13)
--- NOTE | 2016-11-04 18:19 | PN ---
Date/Time of Note Date/Time of Note DATE: 11/04/16 TIME: 18:10 OB Subjective Subjective Subjective No C/O UCs OB Objective Objective Objective On EFM NO U/C seen OB Assessment/Plan Reason for admission: labor Other Assessment: short cervix Other plan: continue on present course TRACIE BISHOP MD Nov 04, 2016 18:19
[2016-11-04] MEDS: PROGESTERONE 100 MG CAP VAG SCH (21:07)
[2016-11-05] MEDS: NIFEdipine 10 MG CAP PO SCH ×3 (05:49→18:25)
[2016-11-05] MEDS: FERROUS SULFATE (EC) 325 MG TAB PO SCH (09:19)
[2016-11-05] MEDS: SENNA TAB PO SCH ×2 (09:20→21:33)
[2016-11-05] MEDS: PRENATAL VITAMIN PO SCH (09:20)
--- NOTE | 2016-11-05 18:42 | PN ---
Date/Time of Note Date/Time of Note DATE: 11/05/16 TIME: 18:41 OB Subjective Subjective Subjective No major complaints OB Objective Objective Objective VSS P/E: unchanged on EFM no UC seen OB Assessment/Plan Reason for admission: labor Other Assessment: short cervix Other plan: perinatologist want to keep baby in house will follow TRACIE BISHOP MD Nov 05, 2016 18:42
[2016-11-05] MEDS: PROGESTERONE 100 MG CAP VAG SCH (21:33)
[2016-11-06] MEDS: NIFEdipine 10 MG CAP PO SCH ×4 (00:41→18:37)
[2016-11-06] MEDS: PRENATAL VITAMIN PO SCH (08:32)
[2016-11-06] MEDS: SENNA TAB PO SCH ×2 (08:32→21:18)
[2016-11-06] MEDS: FERROUS SULFATE (EC) 325 MG TAB PO SCH (08:32)
--- NOTE | 2016-11-06 18:58 | PN ---
Date/Time of Note Date/Time of Note DATE: 11/06/16 TIME: 18:56 OB Subjective Subjective Subjective No major complaints OB Objective Objective Objective VSS P/E: nl on EFM no UC seen OB Assessment/Plan Reason for admission: labor Other Assessment: short cervix Other plan: continue on present course TRACIE BISHOP MD Nov 06, 2016 18:58
[2016-11-06] MEDS: PROGESTERONE 100 MG CAP VAG SCH (21:17)
[2016-11-07] MEDS: NIFEdipine 10 MG CAP PO SCH ×4 (00:03→18:11)
[2016-11-07] MEDS: FERROUS SULFATE (EC) 325 MG TAB PO SCH (09:26)
[2016-11-07] MEDS: PRENATAL VITAMIN PO SCH (09:26)
[2016-11-07] MEDS: SENNA TAB PO SCH ×2 (09:27→21:14)
--- NOTE | 2016-11-07 14:00 | PN ---
Date/Time of Note Date/Time of Note DATE: 11/07/16 TIME: 13:58 OB Subjective Subjective Subjective no C/O UCs OB Objective Objective Objective VSS P/E: unchanged on EFM No UC seen OB Assessment/Plan Reason for admission: labor (resolved ) Other Assessment: very short cervix Other plan: continue to observe in house per perinatologist TRACIE BISHOP MD Nov 07, 2016 14:00
[2016-11-07] MEDS: PROGESTERONE 100 MG CAP VAG SCH (21:14)
[2016-11-08] MEDS: NIFEdipine 10 MG CAP PO SCH ×5 (00:03→23:57)
[2016-11-08] MEDS: PRENATAL VITAMIN PO SCH (09:55)
[2016-11-08] MEDS: SENNA TAB PO SCH ×2 (09:56→20:50)
[2016-11-08] MEDS: FERROUS SULFATE (EC) 325 MG TAB PO SCH (09:56)
--- NOTE | 2016-11-08 20:46 | PN ---
Date/Time of Note Date/Time of Note DATE: 11/08/16 TIME: 19:02 OB Subjective Subjective Subjective No major complaints no C/O UCs OB Objective Objective Objective VSS P/E: unchanged on EFM no UC seen OB Assessment/Plan Reason for admission: labor Other Assessment: short cervix Other plan: dontinue to observe TRACIE BISHOP MD Nov 08, 2016 19:03
[2016-11-08] MEDS: PROGESTERONE 100 MG CAP VAG SCH (20:50)
[2016-11-09] MEDS: NIFEdipine 10 MG CAP PO SCH ×3 (06:01→18:09)
[2016-11-09] MEDS: FERROUS SULFATE (EC) 325 MG TAB PO SCH (09:31)
[2016-11-09] MEDS: PRENATAL VITAMIN PO SCH (09:32)
[2016-11-09] MEDS: SENNA TAB PO SCH ×2 (09:32→21:09)
--- NOTE | 2016-11-09 18:49 | PN ---
Date/Time of Note Date/Time of Note DATE: 11/09/16 TIME: 18:47 OB Subjective Subjective Subjective No C/O UCs OB Objective Objective Objective VSS / general PO/E is unchanged on EFM no UC seen OB Assessment/Plan Reason for admission: labor Other Assessment: short cervix Other plan: follow perinatology recommendation and keep patient in house TRACIE BISHOP MD Nov 09, 2016 18:49
[2016-11-09] MEDS: PROGESTERONE 100 MG CAP VAG SCH (21:09)
[2016-11-10] MEDS: NIFEdipine 10 MG CAP PO SCH ×4 (00:18→17:50)
[2016-11-10] MEDS: PRENATAL VITAMIN PO SCH (08:52)
[2016-11-10] MEDS: FERROUS SULFATE (EC) 325 MG TAB PO SCH (08:52)
[2016-11-10] MEDS: SENNA TAB PO SCH ×2 (08:52→21:31)
--- NOTE | 2016-11-10 17:31 | PN ---
Date/Time of Note Date/Time of Note DATE: 11/10/16 TIME: 17:30 OB Subjective Subjective Subjective NO C/O UCs OB Objective Objective Objective VS P/E: normal FHTs + on EFM no UC seen OB Assessment/Plan Reason for admission: labor Other Assessment: short cervix will continue to observe TRACIE BISHOP MD Nov 10, 2016 17:31
[2016-11-10] MEDS: PROGESTERONE 100 MG CAP VAG SCH (21:31)
[2016-11-11] MEDS: NIFEdipine 10 MG CAP PO SCH ×4 (00:28→18:05)
[2016-11-11] MEDS: FERROUS SULFATE (EC) 325 MG TAB PO SCH (09:40)
[2016-11-11] MEDS: PRENATAL VITAMIN PO SCH (09:40)
[2016-11-11] MEDS: SENNA TAB PO SCH ×2 (09:40→21:27)
--- NOTE | 2016-11-11 20:49 | PN ---
Date/Time of Note Date/Time of Note DATE: 11/11/16 TIME: 20:47 OB Subjective Subjective Subjective no C/O UCs OB Objective Objective Objective vss P/E unchanged on EFM no UC seen OB Assessment/Plan Reason for admission: labor Other Assessment: short cervix appears stable Other plan: continue on current course per perinatologist TRACIE BISHOP MD Nov 11, 2016 20:49
[2016-11-11] MEDS: PROGESTERONE 100 MG CAP VAG SCH (21:27)
[2016-11-12] MEDS: NIFEdipine 10 MG CAP PO SCH ×4 (00:07→18:01)
[2016-11-12] MEDS: PRENATAL VITAMIN PO SCH (09:51)
[2016-11-12] MEDS: FERROUS SULFATE (EC) 325 MG TAB PO SCH (09:51)
[2016-11-12] MEDS: SENNA TAB PO SCH ×2 (09:51→21:26)
[2016-11-12] MEDS: PROGESTERONE 100 MG CAP VAG SCH (21:26)
--- NOTE | 2016-11-12 22:26 | PN ---
Date/Time of Note Date/Time of Note DATE: 11/12/16 TIME: 22:25 OB Subjective Subjective Subjective no C/O UC OB Objective Objective Objective vss P/E: unchanged OB Assessment/Plan Reason for admission: labor Other Assessment: short cervix Other plan: continue to observe TRACIE BISHOP MD Nov 12, 2016 22:26
[2016-11-13] MEDS: NIFEdipine 10 MG CAP PO SCH ×5 (00:07→23:57)
[2016-11-13] MEDS: PRENATAL VITAMIN PO SCH (09:29)
[2016-11-13] MEDS: FERROUS SULFATE (EC) 325 MG TAB PO SCH (09:29)
[2016-11-13] MEDS: SENNA TAB PO SCH ×2 (09:29→21:04)
--- NOTE | 2016-11-13 09:52 | PN ---
Date/Time of Note Date/Time of Note DATE: 11/13/16 TIME: 09:50 OB Subjective Subjective Subjective No C/O UCs OB Objective Objective Objective VSS P/E: unchanged OB Assessment/Plan Reason for admission: labor Other Assessment: Short cervix Other plan: continue to observe in house per perinatologist repeat U/S for growth TRACIE BISHOP MD Nov 13, 2016 09:52
--- NOTE | 2016-11-13 14:08 | RADRPT ---
PROCEDURE: US OB limited. CLINICAL INDICATION: . Evaluate growth. TECHNIQUE: Multiple transabdominal sonographic images of the pelvis were obtained. . COMPARISON: 10/08/2016. FINDINGS: There is a single live intrauterine in breech presentation with heart motion of 130 beats per minute. The placenta is posteriorly located and without evidence of previa or abruption. Amniotic fluid amount is within normal limits. Measurements were made in order to determine age. The results are as follows: BPD = 7.59 cm, 30 weeks 3 days HC = 28.08 cm, 30 weeks 5 days AC = 25.44 cm, 29 weeks 4 days FL = 5.61 cm, 29 weeks 4 days EFW = 1449 g, 3 pounds 3 ounces, 97%. Gestational age by ultrasound: 30 weeks 1 day, previously 22 weeks 4 days. Estimated date of delivery by ultrasound: 01/21/2017, previously 02/07/2017. IMPRESSION: Single live intrauterine in breech presentation measuring 30 weeks 1 day using current ult rasound measurements with an estimated date of delivery of 01/21/2017. RPTAT: HLST .Jalyn Araya MD, Date Time Electronically viewed and signed by .Jalyn Araya MD, on 11/13/2016 14:08 .T/
[2016-11-13] MEDS: PROGESTERONE 100 MG CAP VAG SCH (21:04)
[2016-11-14] MEDS: NIFEdipine 10 MG CAP PO SCH ×4 (06:12→23:56)
[2016-11-14] MEDS: SENNA TAB PO SCH ×2 (08:52→20:56)
[2016-11-14] MEDS: PRENATAL VITAMIN PO SCH (08:52)
[2016-11-14] MEDS: FERROUS SULFATE (EC) 325 MG TAB PO SCH (08:52)
--- NOTE | 2016-11-14 17:38 | PN ---
Date/Time of Note Date/Time of Note DATE: 11/14/16 TIME: 17:35 OB Subjective Subjective Subjective No C/O UCs OB Objective Objective Objective vss P/E normal baby appears to be slightly larger for dates on EFM no UC seen OB Assessment/Plan Reason for admission: labor Other Assessment: short cervix continue to observe check glucose screen and 28 weeks panel TRACIE BISHOP MD Nov 14, 2016 17:38
[2016-11-14] MEDS: PROGESTERONE 100 MG CAP VAG SCH (20:56)
[2016-11-15] MEDS: NIFEdipine 10 MG CAP PO SCH ×4 (05:58→23:59)
[2016-11-15 07:05] LABS: ADD SCAN DIFF NO
[2016-11-15 07:18] LABS: BASOPHILS % 0.3 % (0.0-2.0); EOSINOPHILS # 0.1 10^3/ul (0.0-0.5); EOSINOPHILS % 0.9 % (0.0-7.0); HEMATOCRIT 33.2 % (37.0-47.0); HEMOGLOBIN 11.3 g/dl (12.0-16.0); LYMPHOCYTES # 2.5 10^3/ul (0.8-2.9); LYMPHOCYTES % 18.4 % (15.0-51.0); MEAN CORPUSCULAR VOLUME 88.1 fl (82.0-101.0); MEAN PLATELET VOLUME 11.7 fl (7.4-10.4); MONOCYTE # 0.8 10^3/ul (0.3-0.9); MONOCYTES % 5.8 % (0.0-11.0); NEUTROPHILS % 73.1 % (39.0-77.0); PLATELET COUNT 187 10^3/UL (140-415); RED BLOOD COUNT 3.77 10^6/ul (4.20-5.40); RED CELL DISTRIBUTION WIDTH 13.7 % (11.5-14.5); WHITE BLOOD COUNT 13.6 10^3/ul (4.8-10.8)
[2016-11-15 07:27] LABS: GLUCOSE, FASTING 76 mg/dl (70-110)
[2016-11-15] MEDS: SENNA TAB PO SCH ×2 (08:42→20:48)
[2016-11-15] MEDS: PRENATAL VITAMIN PO SCH (08:42)
[2016-11-15] MEDS: FERROUS SULFATE (EC) 325 MG TAB PO SCH (08:42)
--- NOTE | 2016-11-15 16:04 | PERINOTE ---
Date/Time of Note Date/Time of Note DATE: 11/15/16 TIME: 15:59 Assessment/Recommendations Other Assessments Intrauterine at 27 weeks and 5 days Short cervix of 8 mm on 10/08/16 Recommendations: I would consider whether it might be possible to discharge this patient home somewhere between 28 and 30 weeks gestation. To that and I would favor repeating cervical length in the next week if the cervical length is unchanged from admission this would make discharge home a more reasonable course of action. OB Subjective Free Text/Dictaton Patient was admitted after finding of a short cervix on 10/08/16. Since that time she has been on bedrest in the hospital. She reports no current issues states she has active movement and denies contractions or vaginal bleeding or leakage of fluid HD# 39 IUP @ [id number] Complaints/Overnight events Ultrasound on 11/13/16 revealed an estimated weight of 1449 g which is 97th percentile for gestational age. Patient's diabetes screen is currently pending. Current Medications Current Medications Prenat Multivit/ Asbestos Removal Worker/Iron/Folic Ac ( S) 1 tab DAILY PO Last administered on 11/15/16 08:42; Admin Dose 1 TAB; Start 10/09/16 at 09:00 Ferrous Sulfate (Ferrous Sulfate (Ec)) 325 mg DAILY PO Last administered on 08:42; Admin Dose 325 MG; Start 10/09/16 at 09:00 Acetaminophen (Tylenol Tab) 650 mg Q4H PRN PO PAIN AND OR ELEVATED TEMP Last administered on 10/14/16 07:27; Admin Dose 650 MG; Start 10/08/16 at 14:30 Magnesium Hydroxide (Milk Of Mag) 30 ml BID PRN PO CONSTIPATION Last administered on 10/14/16 07:42; Admin Dose 30 ML; Start 10/08/16 at 21:30 Senna (Senokot) 2 tab BID PO Last administered on 11/15/16 08:42; Admin Dose 2 TAB; Start 10/09/16 at 09:00 Progesterone (Prometrium) 200 mg HS VAG Last administered on 11/14/16 20:56; Admin Dose 200 MG; Start 10/09/16 at 21:00 Ondansetron HCl (Zofran Inj) 4 mg Q6H PRN IV NAUSEA AND/OR VOMITING Last administered on 10/14/16 16:01; Admin Dose 4 MG; Start 10/13/16 at 13:00 Nifedipine (Procardia) 10 mg Q6 PO Last administered on 11/15/16 11:36; Admin Dose 10 MG; Start 10/23/16 at 00:00 OB Admission Exam Physical Exam Vitals: Blood pressure is 108/49 Pulse is 110 Heart Rate: 140's Accelerations: Accelerations Present (AGA) Decelerations: No Decelerations Varibility: Moderate Last 72 hours Lab Results CBC & BMP 11/15/16 06:30 Copies To: CC: TRACIE BISHOP MD, MARIE H MD Nov 15, 2016 16:04
--- NOTE | 2016-11-15 17:57 | PN ---
Date/Time of Note Date/Time of Note DATE: 11/15/16 TIME: 17:56 OB Subjective Subjective Subjective No C/O uterine contractions OB Objective Objective Objective VSS P/E : NL on EFM no UC seen OB Assessment/Plan Reason for admission: labor Other Assessment: short cervix Other plan: Continue to observe TRACIE BISHOP MD Nov 15, 2016 17:57
[2016-11-15] MEDS: PROGESTERONE 100 MG CAP VAG SCH (20:48)
[2016-11-16] MEDS: NIFEdipine 10 MG CAP PO SCH ×3 (05:58→17:28)
[2016-11-16] MEDS: FERROUS SULFATE (EC) 325 MG TAB PO SCH (09:04)
[2016-11-16] MEDS: SENNA TAB PO SCH ×2 (09:04→21:01)
[2016-11-16] MEDS: PRENATAL VITAMIN PO SCH (09:04)
--- NOTE | 2016-11-16 17:01 | PN ---
Date/Time of Note Date/Time of Note DATE: 11/16/16 TIME: 16:59 OB Subjective Subjective Subjective NO C/O UC OB Objective Objective Objective VSS P/E : unchanged labs are normal 1 hr glucose:111 OB Assessment/Plan Reason for admission: labor Other Assessment: short cervix Other plan: will continue to observe until34 weeks TRACIE BISHOP MD Nov 16, 2016 17:01
[2016-11-16] MEDS: PROGESTERONE 100 MG CAP VAG SCH (21:01)
[2016-11-17] MEDS: NIFEdipine 10 MG CAP PO SCH ×5 (00:18→23:57)
[2016-11-17] MEDS: PRENATAL VITAMIN PO SCH (08:48)
[2016-11-17] MEDS: FERROUS SULFATE (EC) 325 MG TAB PO SCH (08:48)
[2016-11-17] MEDS: SENNA TAB PO SCH ×2 (08:48→20:56)
--- NOTE | 2016-11-17 18:04 | PN ---
Date/Time of Note Date/Time of Note DATE: 11/17/16 TIME: 18:03 OB Subjective Subjective Subjective has no major complaints OB Objective Objective Objective VSS /P/E : NL on EFM no UC seen OB Assessment/Plan Reason for admission: labor Other Assessment: short cervix Other plan: continue to observe TRACIE BISHOP MD Nov 17, 2016 18:04
[2016-11-17] MEDS: PROGESTERONE 100 MG CAP VAG SCH (20:56)
[2016-11-18] MEDS: NIFEdipine 10 MG CAP PO SCH ×3 (06:09→17:46)
[2016-11-18] MEDS: FERROUS SULFATE (EC) 325 MG TAB PO SCH (09:34)
[2016-11-18] MEDS: PRENATAL VITAMIN PO SCH (09:34)
[2016-11-18] MEDS: SENNA TAB PO SCH ×2 (09:34→21:19)
[2016-11-18] MEDS: PROGESTERONE 100 MG CAP VAG SCH (21:19)
[2016-11-19] MEDS: NIFEdipine 10 MG CAP PO SCH ×4 (00:28→18:01)
[2016-11-19] MEDS: PRENATAL VITAMIN PO SCH (09:25)
[2016-11-19] MEDS: FERROUS SULFATE (EC) 325 MG TAB PO SCH (09:25)
[2016-11-19] MEDS: SENNA TAB PO SCH ×2 (09:26→21:02)
--- NOTE | 2016-11-19 18:47 | PN ---
Date/Time of Note Date/Time of Note DATE: 11/19/16 TIME: 18:46 OB Subjective Subjective Subjective No C/O UCs OB Objective Objective Objective vss P/E unchanged OB Assessment/Plan Reason for admission: labor Other Assessment: short cervix Other plan: continue to observe TRACIE BISHOP MD Nov 19, 2016 18:47
[2016-11-19] MEDS: PROGESTERONE 100 MG CAP VAG SCH (21:02)
[2016-11-20] MEDS: NIFEdipine 10 MG CAP PO SCH ×4 (00:17→18:03)
[2016-11-20] MEDS: FERROUS SULFATE (EC) 325 MG TAB PO SCH (10:45)
[2016-11-20] MEDS: PRENATAL VITAMIN PO SCH (10:45)
[2016-11-20] MEDS: SENNA TAB PO SCH ×2 (10:45→20:56)
--- NOTE | 2016-11-20 17:09 | PN ---
Date/Time of Note Date/Time of Note DATE: 11/20/16 TIME: 17:08 OB Subjective Subjective Subjective no major complaints OB Objective Objective Objective VSS P/E: Normal on EFM no UC seen OB Assessment/Plan Reason for admission: labor Other Assessment: short cervix Other plan: continue to observe TRACIE BISHOP MD Nov 20, 2016 17:09
[2016-11-20] MEDS: PROGESTERONE 100 MG CAP VAG SCH (20:56)
[2016-11-21] MEDS: NIFEdipine 10 MG CAP PO SCH ×5 (00:01→23:59)
[2016-11-21] MEDS: FERROUS SULFATE (EC) 325 MG TAB PO SCH (08:41)
[2016-11-21] MEDS: PRENATAL VITAMIN PO SCH (08:41)
[2016-11-21] MEDS: SENNA TAB PO SCH ×2 (08:41→21:02)
--- NOTE | 2016-11-21 17:01 | PN ---
Date/Time of Note Date/Time of Note DATE: 11/21/16 TIME: 17:00 OB Subjective Subjective Subjective NO major complaints OB Objective Objective Objective VS P/E: normal On EFM no UC seen HEENT: WNL Heart: Rhythm Normal Lungs: Clear, Equal Abdomen: WNL Extremities: Normal Reflexes: Normal OB Assessment/Plan Reason for admission: labor Other Assessment: short cervix Other plan: continue to observe TRACIE BISHOP MD Nov 21, 2016 17:01
[2016-11-21] MEDS: PROGESTERONE 100 MG CAP VAG SCH (21:03)
[2016-11-22] MEDS: NIFEdipine 10 MG CAP PO SCH ×3 (05:57→17:50)
[2016-11-22] MEDS: PRENATAL VITAMIN PO SCH (08:55)
[2016-11-22] MEDS: SENNA TAB PO SCH ×2 (08:55→20:57)
[2016-11-22] MEDS: FERROUS SULFATE (EC) 325 MG TAB PO SCH (08:55)
--- NOTE | 2016-11-22 19:42 | PN ---
Date/Time of Note Date/Time of Note DATE: 11/22/16 TIME: 19:41 OB Subjective Subjective Subjective NO C/O UCs OB Objective Objective Objective VSS general P/e is WNL OB Assessment/Plan Reason for admission: labor Other Assessment: short cervix Other plan: continue to observe TRACIE BISHOP MD Nov 22, 2016 19:42
[2016-11-22] MEDS: PROGESTERONE 100 MG CAP VAG SCH (20:57)
[2016-11-23] MEDS: NIFEdipine 10 MG CAP PO SCH ×4 (00:09→17:33)
[2016-11-23] MEDS: FERROUS SULFATE (EC) 325 MG TAB PO SCH (08:48)
[2016-11-23] MEDS: PRENATAL VITAMIN PO SCH (08:48)
[2016-11-23] MEDS: SENNA TAB PO SCH ×2 (08:49→21:05)
[2016-11-23] MEDS ORDERED: TERBUTALINE 1 ML ONE (17:30)
--- NOTE | 2016-11-23 17:48 | PN ---
Date/Time of Note Date/Time of Note DATE: 11/23/16 TIME: 17:45 OB Subjective Subjective Subjective C/O uterine contractions started last PM Appears infrequent ( 5 every hour maximum) OB Objective Objective Objective on EFM NO UC seen: toco adjusted OB Assessment/Plan Reason for admission: labor (recurrent ) Other Assessment: short cervix Other plan: will start on Indocin x 48 hours SQ terbutaline given steroids were contemplated TRACIE BISHOP MD Nov 23, 2016 17:48
[2016-11-23] MEDS ORDERED: BETAMET NA PHOS/AC(6 MG/ML) 5ML INJ IM ONE (18:00)
[2016-11-23] MEDS ORDERED: TERBUTALINE 1 MG/ML INJ SC ONE (18:00)
[2016-11-23] MEDS ORDERED: TERBUTALINE 1 MG/ML INJ SC PRN (18:00)
[2016-11-23] MEDS: INDOMETHACIN 50 MG PO SCH (18:04)
[2016-11-23] MEDS: PROGESTERONE 100 MG CAP VAG SCH (21:05)
[2016-11-24] MEDS: INDOMETHACIN 50 MG PO SCH ×5 (00:06→23:54)
[2016-11-24] MEDS: NIFEdipine 10 MG CAP PO SCH ×5 (00:06→23:54)
[2016-11-24] MEDS: PRENATAL VITAMIN PO SCH (09:14)
[2016-11-24] MEDS: FERROUS SULFATE (EC) 325 MG TAB PO SCH (09:14)
[2016-11-24] MEDS: SENNA TAB PO SCH ×2 (09:15→21:15)
--- NOTE | 2016-11-24 17:48 | RADRPT ---
PROCEDURE: Limited obstetric ultrasound CLINICAL INDICATION: labor, short cervix TECHNIQUE: Multiple transverse and longitudinal grayscale images of the pelvis were obtained tra nsvaginally.. COMPARISON: 11/13/2016 FINDINGS: There is evidence of funneling. The cervix is short measuring 0.6 cm in length. RPTAT: AA IMPRESSION: Short cervix with evidence of funneling. .Gregorio Sanchez MD, MD Date Time Electronically viewed and signed by .Gregorio Sanchez MD, on 11/24/2016 16:56 .S/
[2016-11-24] MEDS ORDERED: BETAMET NA PHOS/AC(6 MG/ML) 5ML INJ IM ONE (18:00)
[2016-11-24] MEDS: PROGESTERONE 100 MG CAP VAG SCH (21:15)
--- NOTE | 2016-11-24 23:47 | PN ---
Date/Time of Note Date/Time of Note DATE: 11/24/16 TIME: 23:44 OB Subjective Subjective Subjective no more C/O UCs OB Objective Objective Objective VSS P/E: Normal Cx: 06 cm on EFM no UC seen OB Assessment/Plan Reason for admission: labor Other Assessment: short cervix + funneling Other plan: continue Indocin X until 48 hours continue to observe TRACIE BISHOP MD Nov 24, 2016 23:47
[2016-11-25] MEDS: AL HYDROX/MG HYDROX/SIMETH 30 ML CUP PO PRN ×2 (03:58→23:20)
[2016-11-25] MEDS: INDOMETHACIN 50 MG PO SCH ×4 (05:57→23:57)
[2016-11-25] MEDS: NIFEdipine 10 MG CAP PO SCH ×4 (05:58→23:57)
[2016-11-25] MEDS: SENNA TAB PO SCH ×2 (11:43→20:32)
[2016-11-25] MEDS: PRENATAL VITAMIN PO SCH (11:43)
[2016-11-25] MEDS: FERROUS SULFATE (EC) 325 MG TAB PO SCH (11:43)
--- NOTE | 2016-11-25 20:25 | PN ---
Date/Time of Note Date/Time of Note DATE: 11/25/16 TIME: 20:20 OB Subjective Subjective Subjective no major complaints OB Objective Objective Objective general P/E: is normal on EFM no UC seen OB Assessment/Plan Reason for admission: labor Other Assessment: short cervix Other plan: will continue on the present course D/C TRACIE Valentin MD Nov 25, 2016 20:25
[2016-11-25] MEDS: PROGESTERONE 100 MG CAP VAG SCH (20:32)
[2016-11-26] MEDS: INDOMETHACIN 50 MG PO SCH ×2 (06:02→11:55)
[2016-11-26] MEDS: NIFEdipine 10 MG CAP PO SCH ×3 (06:03→18:02)
[2016-11-26] MEDS: PRENATAL VITAMIN PO SCH (09:52)
[2016-11-26] MEDS: SENNA TAB PO SCH ×2 (09:52→21:18)
[2016-11-26] MEDS: FERROUS SULFATE (EC) 325 MG TAB PO SCH (09:52)
--- NOTE | 2016-11-26 20:36 | PN ---
Date/Time of Note Date/Time of Note DATE: 11/26/16 TIME: 20:35 OB Subjective Subjective Subjective NO major complaints OB Objective Objective Objective VSS P/E: NL on EFM no UC seen OB Assessment/Plan Reason for admission: labor Other Assessment: Short cervix Other plan: will continue to observe in house TRACIE BISHOP MD Nov 26, 2016 20:36
[2016-11-26] MEDS: PROGESTERONE 100 MG CAP VAG SCH (21:18)
[2016-11-27] MEDS: NIFEdipine 10 MG CAP PO SCH ×5 (00:09→23:29)
[2016-11-27] MEDS: AL HYDROX/MG HYDROX/SIMETH 30 ML CUP PO PRN ×2 (00:09→23:29)
[2016-11-27] MEDS: FERROUS SULFATE (EC) 325 MG TAB PO SCH (09:00)
[2016-11-27] MEDS: PRENATAL VITAMIN PO SCH (09:19)
[2016-11-27] MEDS: SENNA TAB PO SCH ×2 (09:20→21:08)
[2016-11-27] MEDS: PROGESTERONE 100 MG CAP VAG SCH (21:08)
--- NOTE | 2016-11-27 21:41 | PN ---
Date/Time of Note Date/Time of Note DATE: 11/27/16 TIME: 21:40 OB Subjective Subjective Subjective no major complaints OB Objective Objective Objective P/E normal on EFM no UC seen OB Assessment/Plan Reason for admission: labor Other Assessment: short cervix Other plan: continue to observe TRACIE BISHOP MD Nov 27, 2016 21:41
[2016-11-28] MEDS: NIFEdipine 10 MG CAP PO SCH ×4 (06:03→23:49)
[2016-11-28] MEDS: FERROUS SULFATE (EC) 325 MG TAB PO SCH (08:52)
[2016-11-28] MEDS: PRENATAL VITAMIN PO SCH (08:52)
[2016-11-28] MEDS: SENNA TAB PO SCH ×2 (08:52→21:12)
--- NOTE | 2016-11-28 14:49 | PN ---
Date/Time of Note Date/Time of Note DATE: 11/28/16 TIME: 14:47 OB Subjective Subjective Subjective No major complaints OB Objective Objective Objective VSS P/E: unchanged on EFM no UC seen OB Assessment/Plan Reason for admission: labor Other Assessment: short cervix Other plan: will continue to ubserve until atleast 34 weeks TRACIE BISHOP MD Nov 28, 2016 14:48
[2016-11-28] MEDS: PROGESTERONE 100 MG CAP VAG SCH (21:12)
[2016-11-28] MEDS: AL HYDROX/MG HYDROX/SIMETH 30 ML CUP PO PRN (23:49)
[2016-11-29] MEDS: NIFEdipine 10 MG CAP PO SCH ×4 (06:07→23:56)
[2016-11-29] MEDS: SENNA TAB PO SCH ×2 (09:57→21:21)
[2016-11-29] MEDS: PRENATAL VITAMIN PO SCH (09:57)
[2016-11-29] MEDS: FERROUS SULFATE (EC) 325 MG TAB PO SCH (09:57)
--- NOTE | 2016-11-29 14:10 | PN ---
Date/Time of Note Date/Time of Note DATE: 11/29/16 TIME: 14:08 OB Subjective Subjective Subjective No C/O UC OB Objective Objective Objective VSS P/E unchanged OB Assessment/Plan Reason for admission: labor Other Assessment: short cervix 30 weeks gestation Other plan: continue to observe in hospital TRACIE BISHOP MD Nov 29, 2016 14:09
[2016-11-29] MEDS: PROGESTERONE 100 MG CAP VAG SCH (21:22)
[2016-11-29] MEDS: AL HYDROX/MG HYDROX/SIMETH 30 ML CUP PO PRN (23:54)
[2016-11-30] MEDS: NIFEdipine 10 MG CAP PO SCH ×4 (06:03→23:46)
[2016-11-30] MEDS: PRENATAL VITAMIN PO SCH (09:15)
[2016-11-30] MEDS: FERROUS SULFATE (EC) 325 MG TAB PO SCH (09:15)
[2016-11-30] MEDS: SENNA TAB PO SCH ×2 (09:15→20:59)
[2016-11-30] MEDS: PROGESTERONE 100 MG CAP VAG SCH (20:59)
--- NOTE | 2016-11-30 23:26 | PN ---
Date/Time of Note Date/Time of Note DATE: 11/30/16 TIME: 23:23 OB Subjective Subjective Subjective no major complaints OB Objective Objective Objective vss P/E: normal on EFM no UC seen OB Assessment/Plan Reason for admission: labor Other Assessment: short cervix currently running stable course Other plan: continue to observe in house per perinatologist TRACIE BISHOP MD Nov 30, 2016 23:26
[2016-12-01] MEDS: NIFEdipine 10 MG CAP PO SCH ×4 (05:57→23:57)
[2016-12-01] MEDS: PRENATAL VITAMIN PO SCH (08:30)
[2016-12-01] MEDS: FERROUS SULFATE (EC) 325 MG TAB PO SCH (08:30)
[2016-12-01] MEDS: SENNA TAB PO SCH ×2 (08:31→21:55)
--- NOTE | 2016-12-01 18:02 | PN ---
Date/Time of Note Date/Time of Note DATE: 12/01/16 TIME: 18:00 OB Subjective Subjective Subjective No C/O UC OB Objective Objective Objective vss P/E: unchanged on EFM no UC seen OB Assessment/Plan Reason for admission: labor Other Assessment: very short cervix Other plan: continue to observe until 34 weeks per perinatologist TRACIE BISHOP MD Dec 01, 2016 18:02
[2016-12-01] MEDS: PROGESTERONE 100 MG CAP VAG SCH (21:53)
[2016-12-02] MEDS: NIFEdipine 10 MG CAP PO SCH ×3 (05:59→18:08)
[2016-12-02] MEDS: PRENATAL VITAMIN PO SCH (10:44)
[2016-12-02] MEDS: SENNA TAB PO SCH ×2 (10:45→21:16)
[2016-12-02] MEDS: FERROUS SULFATE (EC) 325 MG TAB PO SCH (10:45)
--- NOTE | 2016-12-02 16:38 | PN ---
Date/Time of Note Date/Time of Note DATE: 12/02/16 TIME: 16:26 OB Subjective Subjective Subjective No complaint of uterine contractions no vaginal bleeding and no ruptured membranes OB Objective Objective Objective Vital signs stable General physical exam is unchanged On electronic monitoring no uterine contractions seen OB Assessment/Plan Reason for admission: labor Other Assessment: Very short cervix Other plan: Continue to observe in house until 34 weeks per perinatologist recommendation TRACIE BISHOP MD Dec 02, 2016 16:36
[2016-12-02] MEDS: PROGESTERONE 100 MG CAP VAG SCH (21:15)
[2016-12-03] MEDS: NIFEdipine 10 MG CAP PO SCH ×4 (00:02→18:05)
[2016-12-03] MEDS: SENNA TAB PO SCH ×2 (09:57→21:43)
[2016-12-03] MEDS: FERROUS SULFATE (EC) 325 MG TAB PO SCH (09:57)
[2016-12-03] MEDS: PRENATAL VITAMIN PO SCH (09:57)
--- NOTE | 2016-12-03 14:41 | PN ---
Date/Time of Note Date/Time of Note DATE: 12/03/16 TIME: 14:40 OB Subjective Subjective Subjective no C/O UC OB Objective Objective Objective VSS P/E: Normal on EFM no UC seen OB Assessment/Plan Reason for admission: labor Other Assessment: short cervix Other plan: will continue to observe TRACIE BISHOP MD Dec 03, 2016 14:41
[2016-12-03] MEDS: PROGESTERONE 100 MG CAP VAG SCH (21:44)
[2016-12-04] MEDS: NIFEdipine 10 MG CAP PO SCH ×5 (00:03→23:59)
[2016-12-04] MEDS: PRENATAL VITAMIN PO SCH (09:47)
[2016-12-04] MEDS: FERROUS SULFATE (EC) 325 MG TAB PO SCH (09:47)
[2016-12-04] MEDS: SENNA TAB PO SCH ×2 (09:48→21:08)
--- NOTE | 2016-12-04 14:33 | PN ---
Date/Time of Note Date/Time of Note DATE: 12/04/16 TIME: 14:31 OB Subjective Subjective Subjective No major complaints OB Objective Objective Objective VSS P/E: normal on EFM no UC seen OB Assessment/Plan Reason for admission: labor Other Assessment: short cervix Other plan: Continue to observe TRACIE BISHOP MD Dec 04, 2016 14:33
[2016-12-04] MEDS: PROGESTERONE 100 MG CAP VAG SCH (21:08)
[2016-12-05] MEDS: NIFEdipine 10 MG CAP PO SCH ×3 (06:09→17:44)
[2016-12-05] MEDS: FERROUS SULFATE (EC) 325 MG TAB PO SCH (09:30)
[2016-12-05] MEDS: PRENATAL VITAMIN PO SCH (09:30)
--- NOTE | 2016-12-05 20:43 | PN ---
Date/Time of Note Date/Time of Note DATE: 12/05/16 TIME: 20:41 OB Subjective Subjective Subjective No major complaint OB Objective Objective Objective Vital signs stable General physical exam is normal On electronic monitoring no uterine contractions seen heart tones appeared reactive OB Assessment/Plan Reason for admission: labor Other Assessment: Very short cervix Other plan: Continue to observe patient in hospital. per perinatologist recommendation TRACIE BISHOP MD Dec 05, 2016 20:43
[2016-12-05] MEDS: SENNA TAB PO SCH (21:17)
[2016-12-05] MEDS: PROGESTERONE 100 MG CAP VAG SCH (21:17)
[2016-12-06] MEDS: NIFEdipine 10 MG CAP PO SCH ×4 (00:01→17:45)
[2016-12-06] MEDS: SENNA TAB PO SCH ×2 (08:55→21:03)
[2016-12-06] MEDS: FERROUS SULFATE (EC) 325 MG TAB PO SCH (08:55)
[2016-12-06] MEDS: PRENATAL VITAMIN PO SCH (08:55)
--- NOTE | 2016-12-06 17:13 | PN ---
Date/Time of Note Date/Time of Note DATE: 12/06/16 TIME: 17:12 OB Subjective Subjective Subjective No major complaint OB Objective Objective Objective Vital signs stable General physical exam is normal heart tones react On electronic monitoring no uterine contractions are seen OB Assessment/Plan Reason for admission: labor Other Assessment: Very short Other plan: . Perinatologist recommendation we will continue to observe the patient in hospital Continue the current medications TRACIE BISHOP MD Dec 06, 2016 17:13
[2016-12-06] MEDS: PROGESTERONE 100 MG CAP VAG SCH (21:03)
[2016-12-07] MEDS: NIFEdipine 10 MG CAP PO SCH ×5 (06:01→23:55)
[2016-12-07] MEDS: FERROUS SULFATE (EC) 325 MG TAB PO SCH (08:45)
[2016-12-07] MEDS: PRENATAL VITAMIN PO SCH (08:45)
[2016-12-07] MEDS: SENNA TAB PO SCH ×2 (08:45→21:18)
--- NOTE | 2016-12-07 15:51 | PN ---
Date/Time of Note Date/Time of Note DATE: 12/07/16 TIME: 15:50 OB Subjective Subjective Subjective No major complaints OB Objective Objective Objective Vital signs stable \General physical exam is within normal limits On electronic monitoring no uterine contractions seen heart tones reactive OB Assessment/Plan Reason for admission: labor Other Assessment: Short cervix Other plan: We will continue to observe. Perinatologist recommendations TRACIE BISHOP MD Dec 07, 2016 15:51
[2016-12-07] MEDS: PROGESTERONE 100 MG CAP VAG SCH (21:19)
[2016-12-08] MEDS: NIFEdipine 10 MG CAP PO SCH ×4 (06:01→23:58)
[2016-12-08] MEDS: PRENATAL VITAMIN PO SCH (08:48)
[2016-12-08] MEDS: FERROUS SULFATE (EC) 325 MG TAB PO SCH (08:48)
[2016-12-08] MEDS: SENNA TAB PO SCH ×2 (08:49→21:15)
--- NOTE | 2016-12-08 16:35 | PN ---
Date/Time of Note Date/Time of Note DATE: 12/08/16 TIME: 16:34 OB Subjective Subjective Subjective No complaint of uterine contractions OB Objective Objective Objective Vital signs are stable General physical exam unchanged On electronic monitoring minimal uterine contractions seen heart tones reactive OB Assessment/Plan Reason for admission: labor Other plan: Continue to observe in hospital perinatologist recommendation TRACIE BISHOP MD Dec 08, 2016 16:35
[2016-12-08] MEDS: PROGESTERONE 100 MG CAP VAG SCH (21:15)
[2016-12-09] MEDS: AL HYDROX/MG HYDROX/SIMETH 30 ML CUP PO PRN (02:30)
[2016-12-09] MEDS: NIFEdipine 10 MG CAP PO SCH ×3 (06:13→17:34)
[2016-12-09] MEDS: SENNA TAB PO SCH ×2 (09:10→21:10)
[2016-12-09] MEDS: FERROUS SULFATE (EC) 325 MG TAB PO SCH (09:10)
[2016-12-09] MEDS: PRENATAL VITAMIN PO SCH (09:11)
--- NOTE | 2016-12-09 20:06 | PN ---
Date/Time of Note Date/Time of Note DATE: 12/09/16 TIME: 20:04 OB Subjective Subjective Subjective No major complaints No complaint of uterine contraction complain of vaginal bleed OB Objective Objective Objective Vital signs stable General physical exam is unchanged On electronic monitoring no uterine contractions seen OB Assessment/Plan Reason for admission: labor Other Assessment: Short cervix Other plan: We will continue to observe at least until 34 weeks suggested TRACIE BISHOP MD Dec 09, 2016 20:06
[2016-12-09] MEDS: PROGESTERONE 100 MG CAP VAG SCH (21:10)
[2016-12-10] MEDS: NIFEdipine 10 MG CAP PO SCH ×5 (00:28→23:59)
[2016-12-10] MEDS: AL HYDROX/MG HYDROX/SIMETH 30 ML CUP PO PRN ×2 (00:28→23:02)
[2016-12-10] MEDS: SENNA TAB PO SCH ×2 (09:05→21:34)
[2016-12-10] MEDS: PRENATAL VITAMIN PO SCH (09:05)
[2016-12-10] MEDS: FERROUS SULFATE (EC) 325 MG TAB PO SCH (09:05)
--- NOTE | 2016-12-10 19:01 | PN ---
Date/Time of Note Date/Time of Note DATE: 12/10/16 TIME: 19:00 OB Subjective Subjective Subjective No complaint of uterine contractions vaginal bleeding and or spontaneous rupture of memory OB Objective Objective Objective Vital signs are stable General physical exam is unchanged On electronic monitoring heart tones are reactive Has minimal uterine contractions OB Assessment/Plan Reason for admission: labor Other Assessment: Short cervix Other plan: We will continue to observe until at least 34 weeks TRACIE BISHOP MD Dec 10, 2016 19:01
[2016-12-10] MEDS: PROGESTERONE 100 MG CAP VAG SCH (21:35)
[2016-12-11] MEDS: NIFEdipine 10 MG CAP PO SCH ×3 (06:06→17:36)
[2016-12-11] MEDS: PRENATAL VITAMIN PO SCH (08:48)
[2016-12-11] MEDS: SENNA TAB PO SCH ×2 (08:48→21:08)
[2016-12-11] MEDS: FERROUS SULFATE (EC) 325 MG TAB PO SCH (08:48)
--- NOTE | 2016-12-11 14:56 | PN ---
Date/Time of Note Date/Time of Note DATE: 12/11/16 TIME: 14:55 OB Subjective Subjective Subjective No major complaints OB Objective Objective Objective Vital signs stable General physical exam unchanged On electronic monitoring no uterine contractions seen OB Assessment/Plan Reason for admission: labor Other Assessment: Short cervix Other plan: Continue to observe in-house TRACIE BISHOP MD Dec 11, 2016 14:56
[2016-12-11] MEDS: PROGESTERONE 100 MG CAP VAG SCH (21:08)
[2016-12-12] MEDS: NIFEdipine 10 MG CAP PO SCH ×5 (00:09→23:54)
[2016-12-12] MEDS: PRENATAL VITAMIN PO SCH (08:52)
[2016-12-12] MEDS: FERROUS SULFATE (EC) 325 MG TAB PO SCH (08:52)
[2016-12-12] MEDS: SENNA TAB PO SCH ×2 (08:52→21:08)
[2016-12-12] MEDS: PROGESTERONE 100 MG CAP VAG SCH (21:08)
--- NOTE | 2016-12-12 22:34 | PN ---
Date/Time of Note Date/Time of Note DATE: 12/12/16 TIME: 22:33 OB Subjective Subjective Subjective Feeling good No complaint of uterine contractions or vaginal bleeding OB Objective Objective Objective General physical exam is grossly normal Vital signs are listed On electronic monitoring no contractions seen OB Assessment/Plan Reason for admission: labor Other Assessment: Short Other plan: Continue to observe in-house for uterine contractions TRACIE BISHOP MD Dec 12, 2016 22:33
[2016-12-13] MEDS: NIFEdipine 10 MG CAP PO SCH ×3 (06:06→17:55)
[2016-12-13] MEDS: SENNA TAB PO SCH ×2 (09:01→21:20)
[2016-12-13] MEDS: FERROUS SULFATE (EC) 325 MG TAB PO SCH (09:01)
[2016-12-13] MEDS: PRENATAL VITAMIN PO SCH (09:01)
--- NOTE | 2016-12-13 16:54 | PN ---
Date/Time of Note Date/Time of Note DATE: 12/13/16 TIME: 16:52 OB Subjective Subjective Subjective No complaint of uterine contractions vaginal bleeding or spontaneous rupture of membrane OB Objective Objective Objective Vital signs are stable General physical exam is normal On electronic monitoring no uterine contractions seen OB Assessment/Plan Reason for admission: labor Other Assessment: Short cervix Other plan: We will continue to observe until at least 34 weeks gestation Reconsult perinatologist at 34 weeks gestation TRACIE BISHOP MD Dec 13, 2016 16:54
[2016-12-13] MEDS: PROGESTERONE 100 MG CAP VAG SCH (21:20)
[2016-12-14] MEDS: NIFEdipine 10 MG CAP PO SCH ×4 (00:07→17:41)
[2016-12-14] MEDS: FERROUS SULFATE (EC) 325 MG TAB PO SCH (09:03)
[2016-12-14] MEDS: PRENATAL VITAMIN PO SCH (09:03)
[2016-12-14] MEDS: SENNA TAB PO SCH ×2 (09:03→21:19)
--- NOTE | 2016-12-14 12:19 | PN ---
Date/Time of Note Date/Time of Note DATE: 12/14/16 TIME: 12:18 OB Subjective Subjective Subjective No major complaint Has no complaint of uterine contractions and or vaginal bleeding OB Objective Objective Objective General physical exam is unchanged and vital signs are stable On electronic monitoring no uterine contractions seen OB Assessment/Plan Reason for admission: labor Other Assessment: Short Other plan: Per perinatologist recommendation will continue to observe at least until 34 weeks TRACIE BISHOP MD Dec 14, 2016 12:19
[2016-12-14] MEDS: PROGESTERONE 100 MG CAP VAG SCH (21:19)
[2016-12-15] MEDS: MAGNESIUM HYDROXIDE 30ML CUP PO PRN (00:14)
[2016-12-15] MEDS: NIFEdipine 10 MG CAP PO SCH ×4 (00:14→18:14)
[2016-12-15] MEDS: PRENATAL VITAMIN PO SCH (08:48)
[2016-12-15] MEDS: SENNA TAB PO SCH ×2 (08:49→21:00)
[2016-12-15] MEDS: FERROUS SULFATE (EC) 325 MG TAB PO SCH (08:49)
--- NOTE | 2016-12-15 17:05 | PN ---
Date/Time of Note Date/Time of Note DATE: 12/15/16 TIME: 17:04 OB Subjective Subjective Subjective Patient is bored being in hospital Has no complaint of uterine contractions OB Objective Objective Objective Vital signs are stable General physical exam is normal On electronic monitoring no uterine contractions seen OB Assessment/Plan Reason for admission: labor Other plan: Continue to observe in hospital until 34 weeks currently patient is 32 weeks TRACIE BISHOP MD Dec 15, 2016 17:05
[2016-12-15] MEDS: PROGESTERONE 100 MG CAP VAG SCH (21:00)
[2016-12-16] MEDS: AL HYDROX/MG HYDROX/SIMETH 30 ML CUP PO PRN (02:28)
[2016-12-16] MEDS: NIFEdipine 10 MG CAP PO SCH ×5 (05:56→23:57)
[2016-12-16] MEDS: PRENATAL VITAMIN PO SCH (08:52)
[2016-12-16] MEDS: SENNA TAB PO SCH ×2 (08:52→20:53)
[2016-12-16] MEDS: FERROUS SULFATE (EC) 325 MG TAB PO SCH (08:52)
--- NOTE | 2016-12-16 15:43 | PN ---
Date/Time of Note Date/Time of Note DATE: 12/16/16 TIME: 15:41 OB Subjective Subjective Subjective No C/O Uterine contractions OB Objective Objective Objective VSS P/E unchanged on EFM NO UC seen OB Assessment/Plan Reason for admission: labor Other Assessment: short cervix Other plan: continue to observe in hospital TRACIE BISHOP MD Dec 16, 2016 15:43
[2016-12-16] MEDS ORDERED: LACTATED RINGER'S 1,000 ML IV SCH (18:30)
[2016-12-16] MEDS: PROGESTERONE 100 MG CAP VAG SCH (20:53)
[2016-12-17] MEDS: NIFEdipine 10 MG CAP PO SCH ×4 (06:07→23:59)
[2016-12-17] MEDS: FERROUS SULFATE (EC) 325 MG TAB PO SCH (09:08)
[2016-12-17] MEDS: SENNA TAB PO SCH ×2 (09:08→21:10)
[2016-12-17] MEDS: PRENATAL VITAMIN PO SCH (09:08)
--- NOTE | 2016-12-17 15:01 | PN ---
Date/Time of Note Date/Time of Note DATE: 12/17/16 TIME: 15:00 OB Subjective Subjective Subjective No complaint of uterine contractions or tightening of abdomen OB Objective Objective Objective Vital signs stable General physical exam is unchanged On electronic monitoring minimal uterine contractions seen OB Assessment/Plan Reason for admission: labor Other Assessment: Short cervix Other plan: Continue to observe patient until 34 weeks gestation Currently patient is 32 weeks TRACIE BISHOP MD Dec 17, 2016 15:01
[2016-12-17] MEDS: PROGESTERONE 100 MG CAP VAG SCH (21:10)
[2016-12-17] MEDS: AL HYDROX/MG HYDROX/SIMETH 30 ML CUP PO PRN (23:58)
[2016-12-18] MEDS: NIFEdipine 10 MG CAP PO SCH ×4 (05:58→23:30)
[2016-12-18] MEDS: PRENATAL VITAMIN PO SCH (08:48)
[2016-12-18] MEDS: FERROUS SULFATE (EC) 325 MG TAB PO SCH (08:48)
[2016-12-18] MEDS: SENNA TAB PO SCH ×2 (08:48→20:59)
--- NOTE | 2016-12-18 15:12 | PN ---
Date/Time of Note Date/Time of Note DATE: 12/18/16 TIME: 15:11 OB Subjective Subjective Subjective No complaint of uterine contractions No complaint of vaginal bleeding or leaking OB Objective Objective Objective Vital signs are stable in general physical exam is normal On electronic monitoring heart tones are reactive and minimal to no uterine contractions seen OB Assessment/Plan Reason for admission: labor Other plan: Continue to observe in hospital until 34 weeks TRACIE BISHOP MD Dec 18, 2016 15:12
[2016-12-18] MEDS: PROGESTERONE 100 MG CAP VAG SCH (20:59)
[2016-12-18] MEDS: AL HYDROX/MG HYDROX/SIMETH 30 ML CUP PO PRN (23:28)
[2016-12-19] MEDS: NIFEdipine 10 MG CAP PO SCH ×4 (06:00→23:49)
[2016-12-19] MEDS: SENNA TAB PO SCH ×2 (08:52→21:01)
[2016-12-19] MEDS: PRENATAL VITAMIN PO SCH (08:52)
[2016-12-19] MEDS: FERROUS SULFATE (EC) 325 MG TAB PO SCH (08:52)
--- NOTE | 2016-12-19 16:42 | PN ---
Date/Time of Note Date/Time of Note DATE: 12/19/16 TIME: 16:41 OB Subjective Subjective Subjective No complaint of uterine contractions of vaginal bleeding OB Objective Objective Objective Vital signs stable General physical exam is unchanged On electronic monitoring uterine contractions not not seen OB Assessment/Plan Reason for admission: labor Other Assessment: Short cervix Other plan: We will continue to observe TRACIE BISHOP MD Dec 19, 2016 16:42
[2016-12-19] MEDS: PROGESTERONE 100 MG CAP VAG SCH (21:02)
[2016-12-20] MEDS: NIFEdipine 10 MG CAP PO SCH ×3 (06:13→17:55)
[2016-12-20] MEDS: FERROUS SULFATE (EC) 325 MG TAB PO SCH (09:26)
[2016-12-20] MEDS: PRENATAL VITAMIN PO SCH (09:26)
[2016-12-20] MEDS: SENNA TAB PO SCH ×2 (09:26→21:06)
--- NOTE | 2016-12-20 17:25 | PN ---
Date/Time of Note Date/Time of Note DATE: 12/20/16 TIME: 17:24 OB Subjective Subjective Subjective No complaint of uterine contraction OB Objective Objective Objective Vital signs are stable General physical exam is unchanged heart tones are reactive On electronic monitoring no uterine contractions seen OB Assessment/Plan Reason for admission: labor Other Assessment: Short cervix Other plan: Per perinatologist recommendation we will keep the patient in hospital until 34 weeks Current gestational age is 32+ weeks TRACIE BISHOP MD Dec 20, 2016 17:25
[2016-12-20] MEDS: PROGESTERONE 100 MG CAP VAG SCH (21:07)
[2016-12-21] MEDS: NIFEdipine 10 MG CAP PO SCH ×4 (00:18→17:59)
[2016-12-21] MEDS: AL HYDROX/MG HYDROX/SIMETH 30 ML CUP PO PRN ×2 (00:20→22:36)
[2016-12-21] MEDS: FERROUS SULFATE (EC) 325 MG TAB PO SCH (08:54)
[2016-12-21] MEDS: PRENATAL VITAMIN PO SCH (08:54)
[2016-12-21] MEDS: SENNA TAB PO SCH ×2 (08:54→20:57)
--- NOTE | 2016-12-21 17:15 | PN ---
Date/Time of Note Date/Time of Note DATE: 12/21/16 TIME: 17:12 OB Subjective Subjective Subjective No complaint of uterine contractions or abdominal pressure No complaint of vaginal bleeding or leaking OB Objective Objective Objective Vital signs are General physical exam is normal On electronic monitoring no uterine contractions seen heart tones are reactive OB Assessment/Plan Reason for admission: labor Other Assessment: Short cervix Other plan: We will continue to observe until 34 weeks TRACIE BISHOP MD Dec 21, 2016 17:15
[2016-12-21] MEDS: PROGESTERONE 100 MG CAP VAG SCH (20:57)
[2016-12-22] MEDS: NIFEdipine 10 MG CAP PO SCH ×5 (00:01→23:57)
[2016-12-22] MEDS: FERROUS SULFATE (EC) 325 MG TAB PO SCH (08:38)
[2016-12-22] MEDS: SENNA TAB PO SCH ×2 (08:38→21:03)
[2016-12-22] MEDS: PRENATAL VITAMIN PO SCH (08:38)
--- NOTE | 2016-12-22 16:42 | PN ---
Date/Time of Note Date/Time of Note DATE: 12/22/16 TIME: 16:41 OB Subjective Subjective Subjective No complaint of uterine contractions and or vaginal bleeding OB Objective Objective Objective Vital signs are stable General physical exam is unchanged On electronic monitoring no uterine contractions seen heart tones are reactive OB Assessment/Plan Reason for admission: labor Other Assessment: Short cervix Other plan: Continue to observe until 34 weeks Current gestational age is 33 weeks We will check for estimation of weight TRACIE BISHOP MD Dec 22, 2016 16:42
--- NOTE | 2016-12-22 18:05 | RADRPT ---
PROCEDURE: US OB. CLINICAL INDICATION: labor and 33 weeks gestational age. TECHNIQUE: Multiple sonographic images of the uterus were obtained. The images were revi ewed on a PACS workstation. COMPARISON: 11/13/2016. FINDINGS: There is a single live intrauterine gestation. heart rate is 146 beats per minute. Measurements were made in order to determine age. The results are as follows: BPD = 8.75 cm. HC = 30.90 cm. AC = 30.25 cm. FL = 6.62 cm. Estimated weight is 2401 +/- 360 grams. LMP growth percentile is 81 %. Menstrual age by ultrasound dates is 34 weeks 4 days. The estimated date of delivery is 01/29/2017. Position is cephalic and placenta is posterior grade 1. There is no evidence for an abruption or [facility] previa. IMPRESSION: 1. Single live intrauterine gestation of 34 weeks 4 days menstrual age by ultrasound dates. 2. The estimated date of delivery is 01/29/2017. RPTAT: QQ .Ricky Contreras MD, Date Time Electronically viewed and signed by .Ricky Contreras MD, on 12/22/2016 18:05 .R/
[2016-12-22] MEDS: PROGESTERONE 100 MG CAP VAG SCH (21:02)
[2016-12-23] MEDS: NIFEdipine 10 MG CAP PO SCH ×4 (06:01→23:56)
[2016-12-23] MEDS: FERROUS SULFATE (EC) 325 MG TAB PO SCH (08:34)
[2016-12-23] MEDS: PRENATAL VITAMIN PO SCH (08:34)
[2016-12-23] MEDS: SENNA TAB PO SCH ×2 (08:35→21:05)
--- NOTE | 2016-12-23 17:30 | PN ---
Date/Time of Note Date/Time of Note DATE: 12/23/16 TIME: 17:29 OB Subjective Subjective Subjective No complaint of uterine contractions and or vaginal bleeding OB Objective Objective Objective Vital signs are stable General physical exam is unchanged heart tones are reactive Estimation of weight today 2400 g plus or minus On electronic monitoring no uterine contractions seen OB Assessment/Plan Reason for admission: labor Other Assessment: Short Other plan: Continue to observe until 34 weeks Current gestational age is 33 weeks and 1 day TRACIE BISHOP MD Dec 23, 2016 17:30
[2016-12-23] MEDS: PROGESTERONE 100 MG CAP VAG SCH (21:04)
[2016-12-23] MEDS: AL HYDROX/MG HYDROX/SIMETH 30 ML CUP PO PRN (23:55)
[2016-12-24] MEDS: NIFEdipine 10 MG CAP PO SCH ×3 (06:15→17:37)
[2016-12-24] MEDS: FERROUS SULFATE (EC) 325 MG TAB PO SCH (09:54)
[2016-12-24] MEDS: PRENATAL VITAMIN PO SCH (09:54)
[2016-12-24] MEDS: SENNA TAB PO SCH ×2 (09:55→21:03)
--- NOTE | 2016-12-24 14:21 | PN ---
Date/Time of Note Date/Time of Note DATE: 12/24/16 TIME: 14:20 OB Subjective Subjective Subjective No complaint of labor contractions or vaginal bleeding OB Objective Objective Objective Vital signs stable General physical exam is normal On electronic monitoring no uterine contractions seen OB Assessment/Plan Reason for admission: labor Other Assessment: Short cervix Other plan: Continue to observe until 34 weeks Current gestational age is 33 weeks and 2 days TRACIE BISHOP MD Dec 24, 2016 14:21
[2016-12-24] MEDS: PROGESTERONE 100 MG CAP VAG SCH (21:03)
[2016-12-25] MEDS: AL HYDROX/MG HYDROX/SIMETH 30 ML CUP PO PRN (00:02)
[2016-12-25] MEDS: NIFEdipine 10 MG CAP PO SCH ×4 (00:04→17:27)
[2016-12-25] MEDS: FERROUS SULFATE (EC) 325 MG TAB PO SCH (08:44)
[2016-12-25] MEDS: PRENATAL VITAMIN PO SCH (08:44)
[2016-12-25] MEDS: SENNA TAB PO SCH ×2 (08:44→21:20)
--- NOTE | 2016-12-25 14:55 | PN ---
Date/Time of Note Date/Time of Note DATE: 12/25/16 TIME: 14:54 OB Subjective Subjective Subjective No complaint of uterine contractions or vaginal bleed OB Objective Objective Objective Vital signs stable General physical exam is normal On electronic monitoring no uterine contractions seen heart tones were reactive OB Assessment/Plan Reason for admission: labor Other Assessment: Short cervix Prolonged hospital stay Other plan: We will consider decreasing patient home at 34 weeks TRACIE BISHOP MD Dec 25, 2016 14:55
[2016-12-25] MEDS: PROGESTERONE 100 MG CAP VAG SCH (21:20)
[2016-12-26] MEDS: NIFEdipine 10 MG CAP PO SCH ×5 (00:04→23:50)
[2016-12-26] MEDS: AL HYDROX/MG HYDROX/SIMETH 30 ML CUP PO PRN (00:06)
[2016-12-26] MEDS: PRENATAL VITAMIN PO SCH (09:27)
[2016-12-26] MEDS: SENNA TAB PO SCH ×2 (09:28→21:20)
[2016-12-26] MEDS: FERROUS SULFATE (EC) 325 MG TAB PO SCH (09:28)
--- NOTE | 2016-12-26 18:34 | PN ---
Date/Time of Note Date/Time of Note DATE: 12/26/16 TIME: 18:32 OB Subjective Subjective Subjective No complaint of uterine contractions or vaginal bleeding OB Objective Objective Objective Vital signs are stable General physical exam is unchanged heart tones are reactive On electronic monitoring no uterine contractions seen OB Assessment/Plan Reason for admission: labor Other Assessment: Short cervix Other plan: Will DC patient home at 34 weeks TRACIE BISHOP MD Dec 26, 2016 18:34
[2016-12-26] MEDS: PROGESTERONE 100 MG CAP VAG SCH (21:20)
[2016-12-27] MEDS: NIFEdipine 10 MG CAP PO SCH ×4 (05:58→23:58)
[2016-12-27] MEDS: PRENATAL VITAMIN PO SCH (09:08)
[2016-12-27] MEDS: FERROUS SULFATE (EC) 325 MG TAB PO SCH (09:08)
[2016-12-27] MEDS: SENNA TAB PO SCH ×2 (09:08→21:03)
--- NOTE | 2016-12-27 13:52 | PN ---
Date/Time of Note Date/Time of Note DATE: 12/27/16 TIME: 13:51 OB Subjective Subjective Subjective No complaint of vaginal bleeding and or uterine contractions OB Objective Objective Objective Vital signs stable General physical exam is normal On electronic monitoring heart tones were reactive and minimal or no uterine contractions seen OB Assessment/Plan Reason for admission: labor Other Assessment: Short cervix Prolonged hospital stay Other plan: We will DC home at 34 weeks Current gestational age is 35 weeks and 5 TRACIE BISHOP MD Dec 27, 2016 13:52
[2016-12-27] MEDS: PROGESTERONE 100 MG CAP VAG SCH (21:04)
[2016-12-28] MEDS: NIFEdipine 10 MG CAP PO SCH ×3 (05:57→17:37)
[2016-12-28] MEDS: SENNA TAB PO SCH ×2 (08:49→21:08)
[2016-12-28] MEDS: FERROUS SULFATE (EC) 325 MG TAB PO SCH (08:49)
[2016-12-28] MEDS: PRENATAL VITAMIN PO SCH (08:49)
--- NOTE | 2016-12-28 15:19 | PN ---
Date/Time of Note Date/Time of Note DATE: 12/28/16 TIME: 15:18 OB Subjective Subjective Subjective No complaint of uterine contractions and or vaginal bleeding OB Objective Objective Objective Vital signs stable General physical exam is normal On electronic monitoring no uterine contractions seen and heart tones appeared reactive OB Assessment/Plan Reason for admission: labor Other Assessment: Short cervix Other plan: We will consult perinatologist to DC patient home next day Obtain estimation of weight on day of discharge TRACIE BISHOP MD Dec 28, 2016 15:19
--- NOTE | 2016-12-28 16:33 | DS ---
Date/Time of Note Date/Time of Note Home next day DATE: 12/28/16 TIME: 16:32 Obstetrical Discharge Record Final Diagnosis Final Diagnosis: not delivered Other Final Diagnosis labor at 21 weeks Prolonged hospital stay to 34 weeks Short cervix Complications Tocolytics: Magnesium Sulfate, Terbutaline, Other (Nifedipine) Condition on Discharge Physical Assessment Last Vitals: See nurse's notes Voiding: Yes Bowel Movement: Yes Breast: Soft, non-tender, Filling Fundus: Other () Abdomen and Incision: Gravid soft Episiotomy: Not applicable Calf Tenderness: No Patient Condition: Good TRACIE BISHOP MD Dec 28, 2016 16:33
--- NOTE | 2016-12-28 16:36 | DS ---
Date/Time of Note Date/Time of Note DATE: 12/28/16 TIME: 16:34 Discharge Summary Admission/Discharge Info Admit Date/Time October 08, 2016 at 13:26 Discharge Date/Time December 29, 2016 Discharge Diagnosis labor Short cervix Prolonged hospital stay Patient Condition: Good Procedures None Hx of Present Illness 21-year-old female admitted at 21 weeks gestation with contractions and short cervix and per perinatologist had prolonged hospital stay until 34 weeks Hospital Course Uncomplicated Follow-up Plan 3 days in clinic for follow-up Bedrest and pelvic rest until delivery Continue her medications at home Primary Care Provider MD EDNA Rodriguez KAMROOZ MD Dec 28, 2016 16:36
--- NOTE | 2016-12-28 16:38 | PD.PPDC ---
ACCOUNT DIRECTOR Discharge Instruction Provider Information Physician Information 21-year-old female admitted with labor and short cervix and had prolonged hospital stay until 34 weeks Diagnosis Final Diagnosis: labor and short cervix Condition Patient Condition: Good Diet Diet: Resume Regular Diet Activity/Restrictions Activity: Bedrest May Shower Restrictions: No Exercising No Lifting Nothing in the Vagina Follow-up Follow-up with Physician: 3, 4, Day/Days (In clinic) Return to clinic for [facility] [facility] Instructions: Worsening abdominal pain Excessive Vaginal Bleeding TRACIE BISHOP MD Dec 28, 2016 16:38
[2016-12-28] MEDS ORDERED: NIFE10CA19 PO (16:39)
[2016-12-28] MEDS ORDERED: PROG100C5 VAG (16:39)
[2016-12-28] MEDS: PROGESTERONE 100 MG CAP VAG SCH (21:09)
[2016-12-29] MEDS: NIFEdipine 10 MG CAP PO SCH ×2 (00:08→06:16)
[2016-12-29] MEDS: PRENATAL VITAMIN PO SCH (09:04)
[2016-12-29] MEDS: FERROUS SULFATE (EC) 325 MG TAB PO SCH (09:04)
[2016-12-29] MEDS: SENNA TAB PO SCH (09:04)
== END 2016-12-29 10:05 | disposition home or self-care (01) | DRG 781 ==
LOC: OBT 12:36 → L-D 12:37 → OBT 13:24 → OBG 13:26 → L-D 10-28 13:30 → OBG 10-28 13:30
PROVIDERS: ADMIT Obstetrics & Gynecology; ATTEND Obstetrics & Gynecology
DX: O26.872 Cervical shortening, second trimester (principal); O21.8 Other vomiting complicating pregnancy; O47.03 False labor before 37 completed weeks of gestation, third trimester; O62.9 Abnormality of forces of labor, unspecified; O34.32 Maternal care for cervical incompetence, second trimester; R14.0 Abdominal distension (gaseous); Z3A.21 21 weeks gestation of pregnancy
CPT/HCPCS: 36415; 76816; 76817; 81001; 81003; 82947; 82950; 82977; 83735; 85025; 86592; 86703; 87086; 87340; 87591; 96372; 97110; 97161; G0463; J0702; J2405; J3105; J3475; J7120

== ENCOUNTER 2017-01-08 13:16 | Outpatient (CLI) | payer OTHER ==
[~2017-01-08] VITALS: Ht 167.6 cm; Wt 91.9 kg
[~2017-01-08 13:16] MED LIST: NIFE10CA19 PO; PROG100C5 VAG
[2017-01-08 13:35] VITALS: Ht 167.6 cm; Wt 91.9 kg
[2017-01-08 13:36] VITALS: BP 128/71; PULSE 107; RESP 16
--- NOTE | 2017-01-08 14:25 | CONS ---
Date/Time of Note Date/Time of Note DATE: 01/08/17 TIME: 14:19 Consultation Date/Type/Reason Admit Date/Time Hx of Present Illness January 08, 2017 OB triage visit This patient is a 21 years old primigravida with estimated date of confinement of February 09, 2017 which makes her 35 weeks and 3 days now. She came to triage clinic complaining of vaginal pressure and possible labor , on examination she was a well-developed well-nourished lady, in late third trimester, her general vital signs were basically normal, with blood pressure of 128/71, pulse rate 107, respiration 18, temperature 98.3. Her ear nose throat appear to be normal, neck was normal no neck vein distention no thyromegaly no lymph node enlargement anywhere in her body ,her chest is clear to auscultation her precaution, Abdomen is soft, no CVA tenderness, fetus in vertex presentation , heart tone is normal, she does not have any evidence of active labor ,I should mention that she has been taking Procardia 10 mg every 6 hours plus progesterone 200 mg suppository every night vaginally Constitutional: No chills, No diaphoresis, No disoriented, No febrile, No improved, No no complaints, No other, No poor po, No requiring IVF, No requiring O2 Eyes: No discharge, No no complaints, No other, No pain, No redness, No visual change ENT: No bleeding, No congestion, No discharge, No dysphagia, No no complaints, No other, No pain, No sore throat Cardiovascular: no complaints, No chest pain, No edema, No lightheadedness, No orthopenea, No other, No palpitations, No paroxysmal nocturnal dyspnea Gastrointestinal: No blood, No constipation, No decreased appetite, No diarrhea , No flatus, No nausea, No no complaints, No other, No pain, No passing stool, No vomiting Genitourinary: No bleeding, No discharge, No dysuria, No flank pain, No hematuria, No no complaints, No other Musculoskeletal: No back pain, No bone/joint pain, No neck pain, No no complaints, No other, No restricted range of motion, No swelling Skin: No bruising, No erythema, No laceration, No no complaints, No other, No pruritis, No rash, No skin lesions Neurologic: No confusion, No dizziness, No focal-weakness, No headache, No no complaints, No other, No seizure, No syncope Endocrine: No dry skin, No no complaints, No other, No polydypsia, No polyuria , No temp intolerance Lymphatic: No adenopathy, No lymphadema, No no complaints, No other, No tender nodes Additional Comments With these normal finding patient was reassured and she was discharged home to continue her Procardia medication 10 mg every 6 hours as well as a progesterone suppository. Social History Smoking Status: Never smoker Exam/Review of Systems Vital Signs Vitals Vital Signs Date Time Temp Pulse Resp B/P Pulse Ox O2 Delivery O2 Flow Rate FiO2 01/08/17 13:36 98.3 107 16 128/71 ISAAC SCOTT MD Jan 08, 2017 14:25
== END 2017-01-08 14:35 | disposition home or self-care (01) ==
LOC: OBT 13:16 → L-D 13:17 → OBT 14:35
PROVIDERS: ATTEND Obstetrics & Gynecology
DX: O62.9 Abnormality of forces of labor, unspecified (principal); Z3A.35 35 weeks gestation of pregnancy; O26.893 Other specified pregnancy related conditions, third trimester; R10.2 Pelvic and perineal pain
CPT/HCPCS: G0463

== ENCOUNTER 2017-02-08 01:14 | Inpatient (IN) | payer OTHER ==
[~2017-02-08] VITALS: Ht 170.2 cm; Wt 96.2 kg
[2017-02-08 01:24] VITALS: Ht 170.2 cm; Wt 96.2 kg
[2017-02-08 01:45] VITALS: BP 126/80; PULSE 81; RESP 20
[2017-02-08] MEDS ORDERED: PRENAT PO (01:58)
[2017-02-08] MEDS ORDERED: FERR134T PO (01:58)
[2017-02-08] MEDS ORDERED: IBUPROFEN 600 MG TAB PO PRN (02:00)
[2017-02-08] MEDS ORDERED: HYDROCODONE/APAP (5/325) TAB PO PRN ×3 (02:00→15:30)
[2017-02-08] MEDS ORDERED: LIDOCAINE 1% (MPF) 30 ML INJ INJ PRN (02:00)
[2017-02-08] MEDS ORDERED: OXYTOCIN 30 UNITS/LR 500 ML IV PRN ×2 (02:00→15:30)
[2017-02-08] MEDS ORDERED: BUTORPHANOL 2 MG INJ IV PRN (02:00)
[2017-02-08] MEDS ORDERED: CARBOPROST 250 MCG INJ IM PRN ×2 (02:00→15:30)
[2017-02-08] MEDS ORDERED: METHYLERGONOVINE 0.2 MG INJ IM PRN ×2 (02:00→15:30)
[2017-02-08] MEDS ORDERED: LACTATED RINGER'S 1,000 ML IV PRN (02:00)
[2017-02-08] MEDS ORDERED: MISOPROSTOL 200 MCG TAB PR PRN ×2 (02:00→15:30)
[2017-02-08] MEDS ORDERED: OXYTOCIN 30 UNITS/LR 500 ML IV SCH ×2 (02:00)
[2017-02-08 02:57] LABS: BASOPHILS % 0.3 % (0.0-2.0); EOSINOPHILS % 0.4 % (0.0-7.0); HEMATOCRIT 35.7 % (37.0-47.0); HEMOGLOBIN 12.4 g/dl (12.0-16.0); LYMPHOCYTES # 1.8 10^3/ul (0.8-2.9); LYMPHOCYTES % 15.6 % (15.0-51.0); MEAN CORPUSCULAR HEMOGLOBIN 30.9 pg (29.0-33.0); MEAN CORPUSCULAR HGB CONC 34.7 g/dl (32.0-37.0); MEAN PLATELET VOLUME 12.2 fl (7.4-10.4); MONOCYTE # 0.5 10^3/ul (0.3-0.9); MONOCYTES % 4.7 % (0.0-11.0); NEUTROPHIL # 8.9 10^3/ul (1.6-7.5); NEUTROPHILS % 78.4 % (39.0-77.0); PLATELET COUNT 176 10^3/UL (140-415); RED BLOOD COUNT 4.01 10^6/ul (4.20-5.40); RED CELL DISTRIBUTION WIDTH 13.2 % (11.5-14.5); WHITE BLOOD COUNT 11.4 10^3/ul (4.8-10.8)
[2017-02-08] MEDS ORDERED: ONDANSETRON 4 MG INJ ONE (03:05)
[2017-02-08] MEDS ORDERED: FENTAnyl 2MCG/ML-ROPIV 0.2% 100 ML ONE (03:08)
[2017-02-08 03:14] LABS: INR 0.89; PT RATIO 0.9
[2017-02-08 03:15] LABS: PARTIAL THROMBOPLASTIN TIME 26.8 Sec (25.0-35.0)
[2017-02-08] MEDS: LACTATED RINGER'S 1,000 ML IV SCH ×2 (03:33→07:56)
[2017-02-08] MEDS: FENTAnyl 2MCG/ML-ROPIV 0.2% 100 ML BAG EPI SCH ×2 (03:54→11:58)
[2017-02-08] MEDS ORDERED: NALOXONE (0.4 MG/ML) INJ IV PRN (04:00)
[2017-02-08] MEDS ORDERED: DIPHENHYDRAMINE 50 MG INJ IV PRN (04:00)
[2017-02-08] MEDS ORDERED: ONDANSETRON 4 MG INJ IV PRN (04:00)
--- NOTE | 2017-02-08 05:58 | TRIAGE ---
OB Triage Datetime Report Generated by CPN: 02/08/2017 05:57 Datetime: 02/08/2017 05:01 Labor Evaluation Frequency: 2-4 Monitor Mode: External Duration (sec)2399: 40-130 Quality: Strong Pattern: Normal: <= 5 Contractions in 10 Minutes Resting Tone Rogers: Relaxed Heart Rate FHR Baseline Rate: 135 Monitor Mode: External US FHR Baseline Changes: No Baseline Change Variability: Moderate 6-25 bpm Accelerations: 15X15 Decelerations: None Category: Category I Datetime: 02/08/2017 04:01 Labor Evaluation Frequency: 2-3 Monitor Mode: External Duration (sec)2399: 40-180 Quality: Strong Pattern: Normal: <= 5 Contractions in 10 Minutes Resting Tone Rogers: Relaxed Contraction Comments: UC COUPLING NOTED Heart Rate FHR Baseline Rate: 125 Monitor Mode: External US Variability: Moderate 6-25 bpm Accelerations: 15X15 Decelerations: None Category: Category I Datetime: 02/08/2017 03:59 Vaginal Exam Dilatation (cms): 6.0 Effacement (%): 90 Station: -1 Exam By: YULY DICKINSON Membrane Status: Intact Vaginal Bleeding: Scant Cervix, Consistency: Soft Cervix, Position: Midposition Presentation 'A': Cephalic Datetime: 02/08/2017 02:57 Labor Evaluation Frequency: 2-3 Monitor Mode: Palpation Duration (sec)2399: 40-60 Quality: Strong Pattern: Normal: <= 5 Contractions in 10 Minutes Resting Tone Rogers: Relaxed Heart Rate FHR Baseline Rate: 135 Monitor Mode: External US Variability: Minimal - Undetectable to <=5 bpm Accelerations: 15X15 Decelerations: None Category: Category II Datetime: 02/08/2017 02:10 Stage of : Labor Assessment Type: Admission Assessment Maternal Assessment Level of Consciousness: Fully Conscious DTR's/Clonus: DTRs 2+; No Clonus Headache: Denies Blurred Vision: No Respiratory Effort: Unlabored; Regular Rhythm; Equal Expansion Breath Sounds, Left: Clear and Equal Breath Sounds, Right: Clear and Equal Nausea/Vomiting: Denies RUQ Epigastric Pain: Denies Lower Extremities Edema: Bilateral Lower Extremities Degree: 1+ Upper Extremities Edema: Bilateral Upper Extremities Degree: 1+ Facial Edema: None Fall Risk Assessment History of Falling: (0) No Secondary Diagnosis: (0) No Ambulatory Aid: (0) Bedrest/Nurse Assist IV Therapy: (0) No Gait: (0) Normal/Bedrest/Immobile Mental Status: (0) Oriented to Own Ability Fall Score: 0 Fall Risk Score Definition: No Risk: No action required Pain Assessment Pain Scale: 10 Pain Presence: Intermittent Pain Type: Contraction Pain Location: Abdomen Pain Goal: 0 Datetime: 02/08/2017 02:05 Time of Arrival: 02/08/2017 02:00 EGA: 39.6 Arrived By: Stretcher Arrived From: TRIAGE Datetime: 02/08/2017 01:36 Vaginal Exam Dilatation (cms): 5.0 Effacement (%): 80 Station: -1 Exam By: Renetta Hay RN Vaginal Bleeding: None Cervix, Consistency: Soft Cervix, Position: Anterior Presentation 'A': Cephalic Datetime: 02/08/2017 01:27 Time of Arrival: 02/08/2017 01:08 EGA: 39.6 Arrived By: Wheelchair Arrived From: Home Datetime: 02/08/2017 01:15 Time of Arrival: 02/08/2017 01:08 EGA: 39.6 Arrived By: Wheelchair Arrived From: Home Movement: Present Contractions: Regular Time Contractions Began: 02/07/2017 23:00 Contractions: 2-3 mins Patient Complaints: Contractions Time Provider Notified: 02/08/2017 02:00 Provider Notified: Dr Shelby Initial Plan: EFM X2, SVE Datetime: 01/08/2017 13:34 Fall Score: 0 Fall Risk Score Definition: No Risk: No action required Datetime: 01/08/2017 13:32 EGA: 35.3 Datetime: 12/29/2016 07:10 Fall Score: 0 Fall Risk Score Definition: No Risk: No action required Datetime: 12/28/2016 19:23 Fall Score: 0 Fall Risk Score Definition: No Risk: No action required Datetime: 12/28/2016 07:19 Fall Score: 0 Fall Risk Score Definition: No Risk: No action required Datetime: 12/27/2016 19:07 Fall Score: 0 Fall Risk Score Definition: No Risk: No action required Datetime: 12/27/2016 08:10 Fall Score: 0 Fall Risk Score Definition: No Risk: No action required Datetime: 12/26/2016 19:45 Fall Score: 0 Fall Risk Score Definition: No Risk: No action required Datetime: 12/26/2016 08:27 Fall Score: 0 Fall Risk Score Definition: No Risk: No action required Datetime: 12/25/2016 19:30 Fall Score: 0 Fall Risk Score Definition: No Risk: No action required Datetime: 12/25/2016 07:45 Fall Score: 0 Fall Risk Score Definition: No Risk: No action required Datetime: 12/24/2016 19:40 Fall Score: 0 Fall Risk Score Definition: No Risk: No action required Datetime: 12/24/2016 07:41 Fall Score: 0 Fall Risk Score Definition: No Risk: No action required Datetime: 12/23/2016 19:30 Fall Score: 0 Fall Risk Score Definition: No Risk: No action required Datetime: 12/23/2016 07:42 Fall Score: 0 Fall Risk Score Definition: No Risk: No action required Datetime: 12/22/2016 19:20 Fall Score: 0 Fall Risk Score Definition: No Risk: No action required Datetime: 12/22/2016 07:15 Fall Score: 0 Fall Risk Score Definition: No Risk: No action required Datetime: 12/21/2016 19:47 Fall Score: 0 Fall Risk Score Definition: No Risk: No action required Datetime: 12/21/2016 07:55 Fall Score: 0 Fall Risk Score Definition: No Risk: No action required Datetime: 12/20/2016 19:40 Fall Score: 0 Fall Risk Score Definition: No Risk: No action required Datetime: 12/20/2016 09:04 Fall Score: 0 Fall Risk Score Definition: No Risk: No action required Datetime: 12/19/2016 19:40 Fall Score: 0 Fall Risk Score Definition: No Risk: No action required Datetime: 12/19/2016 08:20 Fall Score: 0 Fall Risk Score Definition: No Risk: No action required Datetime: 12/18/2016 19:29 Fall Score: 0 Fall Risk Score Definition: No Risk: No action required Datetime: 12/18/2016 07:37 Fall Score: 0 Fall Risk Score Definition: No Risk: No action required Datetime: 12/17/2016 19:31 Fall Score: 0 Fall Risk Score Definition: No Risk: No action required Datetime: 12/17/2016 07:37 Fall Score: 0 Fall Risk Score Definition: No Risk: No action required Datetime: 12/16/2016 19:47 Fall Score: 0 Fall Risk Score Definition: No Risk: No action required Datetime: 12/16/2016 07:30 Fall Score: 0 Fall Risk Score Definition: No Risk: No action required Datetime: 12/15/2016 19:17 Fall Score: 0 Fall Risk Score Definition: No Risk: No action required Datetime: 12/15/2016 08:45 Fall Score: 0 Fall Risk Score Definition: No Risk: No action required Datetime: 12/14/2016 20:03 Fall Score: 0 Fall Risk Score Definition: No Risk: No action required Datetime: 12/14/2016 09:06 Fall Score: 0 Fall Risk Score Definition: No Risk: No action required Datetime: 12/13/2016 19:41 Fall Score: 0 Fall Risk Score Definition: No Risk: No action required Datetime: 12/13/2016 08:45 Fall Score: 0 Fall Risk Score Definition: No Risk: No action required Datetime: 12/12/2016 19:32 Fall Score: 0 Fall Risk Score Definition: No Risk: No action required Datetime: 12/12/2016 08:00 Fall Score: 0 Fall Risk Score Definition: No Risk: No action required Datetime: 12/11/2016 19:20 Fall Score: 0 Fall Risk Score Definition: No Risk: No action required Datetime: 12/11/2016 07:53 Fall Score: 0 Fall Risk Score Definition: No Risk: No action required Datetime: 12/10/2016 20:28 Fall Score: 0 Fall Risk Score Definition: No Risk: No action required Datetime: 12/10/2016 08:00 Fall Score: 0 Fall Risk Score Definition: No Risk: No action required Datetime: 12/09/2016 19:24 Fall Score: 0 Fall Risk Score Definition: No Risk: No action required Datetime: 12/09/2016 09:07 Fall Score: 0 Fall Risk Score Definition: No Risk: No action required Datetime: 12/08/2016 20:06 Fall Score: 0 Fall Risk Score Definition: No Risk: No action required Datetime: 12/08/2016 08:53 Fall Score: 0 Fall Risk Score Definition: No Risk: No action required Datetime: 12/07/2016 19:47 Fall Score: 0 Fall Risk Score Definition: No Risk: No action required Datetime: 12/07/2016 07:24 Fall Score: 0 Fall Risk Score Definition: No Risk: No action required Datetime: 12/06/2016 19:25 Fall Score: 0 Fall Risk Score Definition: No Risk: No action required Datetime: 12/06/2016 07:50 Fall Score: 0 Fall Risk Score Definition: No Risk: No action required Datetime: 12/05/2016 19:20 Fall Score: 0 Fall Risk Score Definition: No Risk: No action required Datetime: 12/05/2016 09:00 Fall Score: 0 Fall Risk Score Definition: No Risk: No action required Datetime: 12/04/2016 19:22 Fall Score: 0 Fall Risk Score Definition: No Risk: No action required Datetime: 12/04/2016 07:56 Fall Score: 0 Fall Risk Score Definition: No Risk: No action required Datetime: 12/03/2016 19:36 Fall Score: 0 Fall Risk Score Definition: No Risk: No action required Datetime: 12/02/2016 19:58 Fall Score: 0 Fall Risk Score Definition: No Risk: No action required Datetime: 12/02/2016 08:10 Fall Score: 0 Fall Risk Score Definition: No Risk: No action required Datetime: 12/01/2016 19:23 Fall Score: 0 Fall Risk Score Definition: No Risk: No action required Datetime: 12/01/2016 08:00 Fall Score: 0 Fall Risk Score Definition: No Risk: No action required Datetime: 11/30/2016 19:45 Fall Score: 0 Fall Risk Score Definition: No Risk: No action required Datetime: 11/30/2016 08:30 Fall Score: 0 Fall Risk Score Definition: No Risk: No action required Datetime: 11/29/2016 19:20 Fall Score: 0 Fall Risk Score Definition: No Risk: No action required Datetime: 11/29/2016 09:00 Fall Score: 0 Fall Risk Score Definition: No Risk: No action required Datetime: 11/28/2016 19:49 Fall Score: 0 Fall Risk Score Definition: No Risk: No action required Datetime: 11/28/2016 07:15 Fall Score: 0 Fall Risk Score Definition: No Risk: No action required Datetime: 11/27/2016 19:31 Fall Score: 0 Fall Risk Score Definition: No Risk: No action required Datetime: 11/27/2016 10:00 Fall Score: 0 Fall Risk Score Definition: No Risk: No action required Datetime: 11/26/2016 19:23 Fall Score: 0 Fall Risk Score Definition: No Risk: No action required Datetime: 11/26/2016 08:31 Fall Score: 0 Fall Risk Score Definition: No Risk: No action required Datetime: 11/25/2016 19:35 Fall Score: 0 Fall Risk Score Definition: No Risk: No action required Datetime: 11/24/2016 19:40 Fall Score: 0 Fall Risk Score Definition: No Risk: No action required Datetime: 11/24/2016 07:38 Fall Score: 0 Fall Risk Score Definition: No Risk: No action required Datetime: 11/23/2016 20:00 Fall Score: 0 Fall Risk Score Definition: No Risk: No action required Datetime: 11/22/2016 19:57 Fall Score: 0 Fall Risk Score Definition: No Risk: No action required Datetime: 11/22/2016 08:00 Fall Score: 0 Fall Risk Score Definition: No Risk: No action required Datetime: 11/21/2016 19:30 Fall Score: 0 Fall Risk Score Definition: No Risk: No action required Datetime: 11/21/2016 08:08 Fall Score: 0 Fall Risk Score Definition: No Risk: No action required Datetime: 11/20/2016 20:06 Fall Score: 0 Fall Risk Score Definition: No Risk: No action required Datetime: 11/20/2016 07:49 Fall Score: 0 Fall Risk Score Definition: No Risk: No action required Datetime: 11/19/2016 19:58 Fall Score: 0 Fall Risk Score Definition: No Risk: No action required Datetime: 11/19/2016 08:35 Fall Score: 0 Fall Risk Score Definition: No Risk: No action required Datetime: 11/18/2016 19:31 Fall Score: 0 Fall Risk Score Definition: No Risk: No action required Datetime: 11/18/2016 08:58 Fall Score: 0 Fall Risk Score Definition: No Risk: No action required Datetime: 11/17/2016 19:26 Fall Score: 0 Fall Risk Score Definition: No Risk: No action required Datetime: 11/17/2016 08:53 Fall Score: 0 Fall Risk Score Definition: No Risk: No action required Datetime: 11/16/2016 19:48 Fall Score: 0 Fall Risk Score Definition: No Risk: No action required Datetime: 11/16/2016 08:23 Fall Score: 0 Fall Risk Score Definition: No Risk: No action required Datetime: 11/15/2016 19:40 Fall Score: 0 Fall Risk Score Definition: No Risk: No action required Datetime: 11/15/2016 07:24 Fall Score: 0 Fall Risk Score Definition: No Risk: No action required Datetime: 11/14/2016 19:53 Fall Score: 0 Fall Risk Score Definition: No Risk: No action required Datetime: 11/14/2016 07:58 Fall Score: 0 Fall Risk Score Definition: No Risk: No action required Datetime: 11/13/2016 19:50 Fall Score: 0 Fall Risk Score Definition: No Risk: No action required Datetime: 11/11/2016 20:01 Fall Score: 0 Fall Risk Score Definition: No Risk: No action required Datetime: 11/11/2016 09:18 Fall Score: 0 Fall Risk Score Definition: No Risk: No action required Datetime: 11/10/2016 19:28 Fall Score: 0 Fall Risk Score Definition: No Risk: No action required Datetime: 11/10/2016 07:30 Fall Score: 0 Fall Risk Score Definition: No Risk: No action required Datetime: 11/09/2016 19:25 Fall Score: 0 Fall Risk Score Definition: No Risk: No action required Datetime: 11/09/2016 09:37 Fall Score: 0 Fall Risk Score Definition: No Risk: No action required Datetime: 11/08/2016 20:43 Fall Score: 0 Fall Risk Score Definition: No Risk: No action required Datetime: 11/08/2016 08:53 Fall Score: 0 Fall Risk Score Definition: No Risk: No action required Datetime: 11/07/2016 19:46 Fall Score: 0 Fall Risk Score Definition: No Risk: No action required Datetime: 11/07/2016 09:30 Fall Score: 0 Fall Risk Score Definition: No Risk: No action required Datetime: 11/06/2016 19:30 Fall Score: 0 Fall Risk Score Definition: No Risk: No action required Datetime: 11/06/2016 07:26 Fall Score: 0 Fall Risk Score Definition: No Risk: No action required Datetime: 11/05/2016 20:37 Fall Score: 0 Fall Risk Score Definition: No Risk: No action required Datetime: 11/05/2016 09:01 Fall Score: 0 Fall Risk Score Definition: No Risk: No action required Datetime: 11/04/2016 19:33 Fall Score: 0 Fall Risk Score Definition: No Risk: No action required Datetime: 11/04/2016 08:54 Fall Score: 0 Fall Risk Score Definition: No Risk: No action required Datetime: 11/03/2016 19:45 Fall Score: 0 Fall Risk Score Definition: No Risk: No action required Datetime: 11/02/2016 19:19 Fall Score: 0 Fall Risk Score Definition: No Risk: No action required Datetime: 11/01/2016 19:35 Fall Score: 0 Fall Risk Score Definition: No Risk: No action required Datetime: 11/01/2016 08:32 Fall Score: 0 Fall Risk Score Definition: No Risk: No action required Datetime: 10/31/2016 19:30 Fall Score: 0 Fall Risk Score Definition: No Risk: No action required Datetime: 10/31/2016 08:00 Fall Score: 0 Fall Risk Score Definition: No Risk: No action required Datetime: 10/30/2016 19:21 Fall Score: 0 Fall Risk Score Definition: No Risk: No action required Datetime: 10/30/2016 08:43 Fall Score: 0 Fall Risk Score Definition: No Risk: No action required Datetime: 10/29/2016 19:14 Fall Score: 0 Fall Risk Score Definition: No Risk: No action required Datetime: 10/29/2016 08:51 Fall Score: 0 Fall Risk Score Definition: No Risk: No action required Datetime: 10/28/2016 19:57 Fall Score: 0 Fall Risk Score Definition: No Risk: No action required Datetime: 10/28/2016 09:15 Fall Score: 0 Fall Risk Score Definition: No Risk: No action required Datetime: 10/27/2016 19:24 Fall Score: 0 Fall Risk Score Definition: No Risk: No action required Datetime: 10/27/2016 08:50 Fall Score: 0 Fall Risk Score Definition: No Risk: No action required Datetime: 10/26/2016 19:52 Fall Score: 0 Fall Risk Score Definition: No Risk: No action required Datetime: 10/26/2016 09:04 Fall Score: 0 Fall Risk Score Definition: No Risk: No action required Datetime: 10/25/2016 19:08 Fall Score: 0 Fall Risk Score Definition: No Risk: No action required Datetime: 10/25/2016 07:25 Fall Score: 20 Fall Risk Score Definition: No Risk: No action required Datetime: 10/24/2016 19:26 Fall Score: 0 Fall Risk Score Definition: No Risk: No action required Datetime: 10/23/2016 19:15 Fall Score: 20 Fall Risk Score Definition: No Risk: No action required Datetime: 10/23/2016 09:05 Fall Score: 0 Fall Risk Score Definition: No Risk: No action required Datetime: 10/22/2016 19:27 Fall Score: 0 Fall Risk Score Definition: No Risk: No action required Datetime: 10/22/2016 08:39 Fall Score: 0 Fall Risk Score Definition: No Risk: No action required Datetime: 10/21/2016 19:43 Fall Score: 0 Fall Risk Score Definition: No Risk: No action required Datetime: 10/21/2016 11:40 Fall Score: 20 Fall Risk Score Definition: No Risk: No action required Datetime: 10/21/2016 08:30 Fall Score: 0 Fall Risk Score Definition: No Risk: No action required Datetime: 10/20/2016 19:23 Fall Score: 0 Fall Risk Score Definition: No Risk: No action required Datetime: 10/19/2016 19:18 Fall Score: 20 Fall Risk Score Definition: No Risk: No action required Datetime: 10/18/2016 19:30 Fall Score: 0 Fall Risk Score Definition: No Risk: No action required Datetime: 10/17/2016 18:34 Fall Score: 0 Fall Risk Score Definition: No Risk: No action required Datetime: 10/16/2016 19:29 Fall Score: 0 Fall Risk Score Definition: No Risk: No action required Datetime: 10/15/2016 19:24 Fall Score: 0 Fall Risk Score Definition: No Risk: No action required Datetime: 10/15/2016 08:08 Fall Score: 0 Fall Risk Score Definition: No Risk: No action required Datetime: 10/14/2016 19:52 Fall Score: 0 Fall Risk Score Definition: No Risk: No action required Datetime: 10/14/2016 08:17 Fall Score: 0 Fall Risk Score Definition: No Risk: No action required Datetime: 10/13/2016 19:23 Fall Score: 0 Fall Risk Score Definition: No Risk: No action required Datetime: 10/13/2016 07:48 Fall Score: 0 Fall Risk Score Definition: No Risk: No action required Datetime: 10/12/2016 19:35 Fall Score: 0 Fall Risk Score Definition: No Risk: No action required Datetime: 10/11/2016 19:45 Fall Score: 20 Fall Risk Score Definition: No Risk: No action required Datetime: 10/11/2016 07:36 Fall Score: 20 Fall Risk Score Definition: No Risk: No action required Datetime: 10/10/2016 19:35 Fall Score: 20 Fall Risk Score Definition: No Risk: No action required Datetime: 10/10/2016 07:51 Fall Score: 20 Fall Risk Score Definition: No Risk: No action required Datetime: 10/09/2016 19:51 Fall Score: 20 Fall Risk Score Definition: No Risk: No action required Datetime: 10/09/2016 08:24 Fall Score: 0 Fall Risk Score Definition: No Risk: No action required Datetime: 10/08/2016 20:30 Fall Score: 20 Fall Risk Score Definition: No Risk: No action required Datetime: 10/08/2016 12:42 EGA: 22.2 Datetime: 10/08/2016 12:40 Fall Score: 0 Fall Risk Score Definition: No Risk: No action required
--- NOTE | 2017-02-08 12:29 | HP ---
Date/Time of Note Date/Time of Note DATE: 02/08/17 TIME: 12:25 OB - History Hx of Present Free Text/Dictation 21-year-old female with long-standing history of labor presented herself to [facility] in active labor at term Chief Complaint: Labor pain Last Menstrual Period: May 13, 2016 Estimated Due Date: Feb 09, 2017 : 1 Para: 0 Care: Good Care Ultrasounds: Normal mid trimester US Obstetrical Complications: Other Medical Complications: None ( labor) Past Family/Social History * Past Medical, Surgical, Family and Obstetric Histories reviewed from chart. Blood Type: O+ Rubella: immune RPR/VDRL: Negative GBS Status: Unknown HBsAG: Negative OB Admission Exam Vital Signs Vital Signs Vital Signs Date Time Temp Pulse Resp B/P Pulse Ox O2 Delivery O2 Flow Rate FiO2 02/08/17 01:45 98.3 81 20 126/80 Room Air Physical Exam HEENT: WNL Heart: Rhythm Normal Lungs: Clear, Equal Abdomen: WNL Extremities: Normal Reflexes: Normal Cervical Dilatation: 7cm Effacement: 100% Station: -2 Membranes: Intact Amniotic Fluid: Other (Dark meconium seen after artificial rupture) Accelerations: Accelerations Present Decelerations: No Decelerations Varibility: Moderate Contractions on Admission: < 5 Minutes Apart Date/Time Contractions Began: February 08, 2017 Frequency of Contractions: Every 4 five-minute Duration: Over 60 seconds Intensity: Firm Last 72 hours Lab Results CBC & BMP 02/08/17 02:30 OB Assessment/Plan Reason for admission: active labor Other Assessment: Term gestation After rupture membrane dark meconium seen Other plan: Consider amnioinfusion Follow labor TRACIE BISHOP MD Feb 08, 2017 12:29
[2017-02-08] MEDS ORDERED: MINERAL OIL LIGHT 10 ML VIAL ONE (12:55)
--- NOTE | 2017-02-08 14:08 | LDN ---
Date/Time of Note Date/Time of Note DATE: 02/08/17 TIME: 14:06 Delivery Summary Normal spontaneous vaginal delivery of a viable over intact perineum Weeks of Gestation 39 weeks and 6 day Placenta Delivered: Spontaneously, Intact & Complete Meconium: Thick Episiotomy: No Perineal laceration: 1 Laceration repair: First-degree perineal laceration was repaired in layers in normal fashion using 2-0 chromic and 2-0 Vicryl Anesthesia type: None Estimated blood loss: 300 Sponge & Needle done & correct: Yes All needle counts correct: Yes Any foreign bodies felt in the: No Problems: Delivery Information Sex Infant Sex: male Apgars 1 Minute: 9 5 Minute: 9 Suctioning Nose & mouth suctioned at naomi: Yes Delee suction performed: No Umbilical Cord Umbilical cord with: 3 Vessels Cord presentations: no nuchal cord Cord Blood was obtained: Yes Mother & Baby Disposition Disposition Mom & Baby to Maternity; Good: Yes (Mother and baby were recovered in good condition) Mom transferred to: Other (Maternity) Baby to NICU: No TRACIE BISHOP MD Feb 08, 2017 14:08
[2017-02-08] MEDS ORDERED: MINERAL OIL LIGHT 10 ML VIAL TOP ONE (14:30)
[2017-02-08 15:30] VITALS: BP 120/69; PULSE 87; RESP 18
[2017-02-08] MEDS ORDERED: WITCH HAZEL/GLYCERIN PAD PR PRN (15:30)
[2017-02-08] MEDS ORDERED: LANOLIN 7 GM TUBE TOP PRN (15:30)
[2017-02-08] MEDS ORDERED: ZOLPIDEM 5 MG TAB PO PRN (15:30)
[2017-02-08] MEDS ORDERED: DIBUCAINE 1% 30 GM OINT PR PRN (15:30)
[2017-02-08] MEDS ORDERED: BENZOCAINE 20% 56 ML SPRAY TOP PRN (15:30)
[2017-02-08] MEDS: LACTATED RINGER'S 1,000 ML IV* SCH (16:26)
[2017-02-08] MEDS: CEPHALEXIN 500 MG CAP PO SCH (17:20)
[2017-02-08] MEDS: IBUPROFEN 600 MG TAB PO SCH (17:20)
[2017-02-08 20:45] VITALS: BP 107/56; PULSE 98; RESP 18
[2017-02-08] MEDS: SENNA/DOCUSATE NA (8.6MG/50MG) TAB PO SCH (20:52)
[2017-02-08] MEDS: MAGNESIUM HYDROXIDE 30ML CUP PO SCH (20:52)
[2017-02-09] MEDS: CEPHALEXIN 500 MG CAP PO SCH ×5 (00:24→23:32)
[2017-02-09] MEDS: IBUPROFEN 600 MG TAB PO SCH ×5 (00:25→23:32)
[2017-02-09 00:45] VITALS: BP 108/59; PULSE 80; RESP 18
[2017-02-09 04:00] VITALS: BP 105/58; PULSE 89; RESP 18
[2017-02-09] MEDS: LACTATED RINGER'S 1,000 ML IV* SCH ×3 (07:28→23:28)
[2017-02-09 08:00] VITALS: BP 110/56; PULSE 77; RESP 18
[2017-02-09 09:57] LABS: BASOPHILS % 0.3 % (0.0-2.0); EOSINOPHILS # 0.1 10^3/ul (0.0-0.5); EOSINOPHILS % 0.4 % (0.0-7.0); HEMATOCRIT 30.9 % (37.0-47.0); HEMOGLOBIN 10.9 g/dl (12.0-16.0); LYMPHOCYTES # 2.1 10^3/ul (0.8-2.9); LYMPHOCYTES % 15.1 % (15.0-51.0); MEAN CORPUSCULAR HEMOGLOBIN 31.9 pg (29.0-33.0); MEAN CORPUSCULAR HGB CONC 35.3 g/dl (32.0-37.0); MEAN CORPUSCULAR VOLUME 90.4 fl (82.0-101.0); MEAN PLATELET VOLUME 12.2 fl (7.4-10.4); MONOCYTE # 0.5 10^3/ul (0.3-0.9); NEUTROPHIL # 10.8 10^3/ul (1.6-7.5); NEUTROPHILS % 79.6 % (39.0-77.0); PLATELET COUNT 153 10^3/UL (140-415); RED BLOOD COUNT 3.42 10^6/ul (4.20-5.40); RED CELL DISTRIBUTION WIDTH 13.8 % (11.5-14.5); WHITE BLOOD COUNT 13.6 10^3/ul (4.8-10.8)
[2017-02-09] MEDS: MAGNESIUM HYDROXIDE 30ML CUP PO SCH ×2 (12:34→21:09)
[2017-02-09] MEDS: SENNA/DOCUSATE NA (8.6MG/50MG) TAB PO SCH ×2 (12:34→21:09)
--- NOTE | 2017-02-09 16:05 | DS ---
Date/Time of Note Date/Time of Note DATE: 02/09/17 TIME: 16:04 Obstetrical Discharge Record Final Diagnosis Final Diagnosis: Term delivered Vaginal Delivery Obstetrical Delivery: Spontaneous, Laceration, Repaired Condition on Discharge Physical Assessment Last Vitals: See nurse's notes Voiding: Yes Bowel Movement: Yes Breast: Soft, non-tender, Filling Fundus: Firm Abdomen and Incision: Soft bowel sounds present Episiotomy: Not applicable Perineum healing well, Perineum is clean Calf Tenderness: No Patient Condition: Good TRACIE BISHOP MD Feb 09, 2017 16:05
[2017-02-09] MEDS ORDERED: IBUP-1542 PO (16:07)
--- NOTE | 2017-02-09 16:07 | PD.PPDC ---
SPRAYER MACHINE Discharge Instruction Provider Information Physician Information 21-year-old female had vaginal delivery Diagnosis Final Diagnosis: Status post vaginal delivery Condition Patient Condition: Good Diet Diet: Resume Regular Diet Activity/Restrictions Activity: Normal Activity May Shower Restrictions: Nothing in the Vagina Return to Work or School: Mar 30, 2017 Follow-up Follow-up with Physician: 4, Week/Weeks (In clinic) Return to clinic for OB Instructions: Breast Tenderness Depression Comment: Pelvic rest 6 weeks TRACIE BISHOP MD Feb 09, 2017 16:06
[2017-02-09 16:30] VITALS: BP 112/65; PULSE 89; RESP 18
[2017-02-09 20:50] VITALS: BP 125/60; PULSE 86; RESP 18
[2017-02-10 04:30] VITALS: BP 117/58; PULSE 81; RESP 18
[2017-02-10] MEDS: LACTATED RINGER'S 1,000 ML IV* SCH (05:24)
[2017-02-10] MEDS: CEPHALEXIN 500 MG CAP PO SCH ×2 (05:37→11:30)
[2017-02-10] MEDS: IBUPROFEN 600 MG TAB PO SCH ×2 (05:37→11:30)
[2017-02-10 08:00] VITALS: BP 111/64; PULSE 74; RESP 14
[2017-02-10] MEDS: SENNA/DOCUSATE NA (8.6MG/50MG) TAB PO SCH (08:53)
[2017-02-10] MEDS: MAGNESIUM HYDROXIDE 30ML CUP PO SCH (08:53)
[2017-02-10] MEDS ORDERED: DIPHTH/TET/ACEL PERTUSS (ADULT) 0.5 ML VIAL IM* ONE (09:00)
[2017-02-10] MEDS ORDERED: MEASLES,MUMPS,RUBELLA VACCINE INJ SC* ONE (09:00)
[2017-02-10] MEDS ORDERED: VARICELLA VACCINE LIVE/PF 1,350 UNIT/0.5 ML ML SC* ONE (09:00)
[2017-02-10 11:24] LABS: BASOPHILS % 0.3 % (0.0-2.0); EOSINOPHILS # 0.1 10^3/ul (0.0-0.5); EOSINOPHILS % 0.7 % (0.0-7.0); HEMATOCRIT 33.2 % (37.0-47.0); HEMOGLOBIN 11.3 g/dl (12.0-16.0); LYMPHOCYTES # 1.7 10^3/ul (0.8-2.9); LYMPHOCYTES % 14.2 % (15.0-51.0); MEAN PLATELET VOLUME 12.2 fl (7.4-10.4); MONOCYTE # 0.4 10^3/ul (0.3-0.9); MONOCYTES % 3.4 % (0.0-11.0); NEUTROPHIL # 9.5 10^3/ul (1.6-7.5); NEUTROPHILS % 80.8 % (39.0-77.0); PLATELET COUNT 175 10^3/UL (140-415); RED BLOOD COUNT 3.65 10^6/ul (4.20-5.40); RED CELL DISTRIBUTION WIDTH 13.6 % (11.5-14.5); WHITE BLOOD COUNT 11.8 10^3/ul (4.8-10.8)
== END 2017-02-10 17:21 | disposition home or self-care (01) | DRG 775 ==
LOC: L-D 01:14 → OBT 01:14 → L-D 01:55 → PP1 15:26 → EDSTATUS 02-09 07:00
PROVIDERS: ADMIT Obstetrics & Gynecology; ATTEND Obstetrics & Gynecology
PROC: 10E0XZZ Delivery of Products of Conception, External Approach (ICD-10-PCS; principal; 2017-02-08)
PROC: 0HQ9XZZ Repair Perineum Skin, External Approach (ICD-10-PCS; 2017-02-08)
PROC: 3E033VJ Introduction of Other Hormone into Peripheral Vein, Percutaneous Approach (ICD-10-PCS; 2017-02-08)
DX: O70.0 First degree perineal laceration during delivery (principal); Z37.0 Single live birth; Z3A.39 39 weeks gestation of pregnancy
CPT/HCPCS: 62319; 85025; 85610; 85730; 86592; 86900; 86901; 87340; 90715; 90716; 99464; G0463; J2405; J2590; J3010; J7120